=== PATIENT | female | born 1980 | race American Indian/Alaskan Native ===

== ENCOUNTER 2017-06-14 08:26 | Emergency (ER) | payer OTHER ==
[2017-06-14 09:06] LABS: Mean Corpuscular HGB Conc 27 % (30-34); Platelet Count 354 K/mm3 (140-440); White Blood Count 7.1 K/mm3 (4.5-11.0)
[2017-06-14 09:14] LABS: Hematocrit 26.2 % (30.3-42.9); Hemoglobin 7.1 gm/dl (10.1-14.3)
[2017-06-14 09:15] LABS: Mean Corpuscular Hemoglobin 14 pg (28-32); Mean Corpuscular Volume 50 fl (79-97); Red Cell Distribution Width 24.2 % (13.2-15.2)
[2017-06-14 10:34] LABS: Anisocytosis 3+; Basophils % (Manual) 0 % (0.0-1.8); Blastocytes % (Manual) 0 %
[2017-06-14 10:35] LABS: Elliptocytes 1+; Hypochromasia 2+; Poikilocytosis 1+; Polychromasia Few; Target Cells Few
[2017-06-14 10:36] LABS: Diff Status Complete; Microcytosis 3+
[2017-06-14] MEDS ORDERED: NACL 0.9% 1000 ML 1,000 ML IV ONE (11:40)
--- NOTE | 2017-06-14 11:45 | Emergency Department Report ---
ED Female HPI - General Chief complaint: Vaginal Bleeding Stated complaint: VAGINAL BLEED Time Seen by Provider: 06/14/17 11:22 Source: patient Mode of arrival: Ambulatory Limitations: No Limitations - History of Present Illness Initial comments: 36 years old female with no significant past medical history except for asthma, presented Today with heavy vaginal bleeding for the last 2 days with some abdominal cramping patient stated that she has been passing clots. She stated that she is changing her pads every 3 hours. Denied any nausea or vomiting or dizziness. No shortness of breath or lightheadedness. 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 MD Complaint: vaginal bleeding -: Gradual, days(s) Radiation: suprapubic Quality: cramping Are you Now?: No - Related Data Previous Rx's Medication Instructions Recorded Last Taken Type ALBUTEROL Inhaler [ProAir HFA 2 puff IH QID PRN #1 inhalation 06/01/16 Unknown Rx Inhaler] Ferrous Sulfate [Feosol 325 MG tab] 325 mg PO QDAY #30 tablet 06/14/17 Unknown Rx medroxyPROGESTERone ACETATE 10 mg PO QDAY #10 tablet 06/14/17 Unknown Rx [Provera] Allergies Allergy/AdvReac Type Severity Reaction Status Date / Time No Known Allergies Allergy Verified 09/05/14 03:24 ED Review of Systems ROS: Stated complaint: VAGINAL BLEED Other details as noted in HPI Comment: All other systems reviewed and negative Constitutional: denies: chills, fever Respiratory: denies: cough, orthopnea, shortness of breath Cardiovascular: denies: chest pain, palpitations Gastrointestinal: abdominal pain. denies: nausea, vomiting Genitourinary: abnormal menses. denies: urgency, dysuria, frequency, hematuria Neurological: denies: headache ED Past Medical Hx - Past Medical History Hx Asthma: Yes (last inhaler 1 year ago) - Surgical History Hx Cholecystectomy: Yes - Social History Smoking Status: Never Smoker - Medications Home Medications: Home Medications Medication Instructions Recorded Confirmed Last Taken Type ALBUTEROL Inhaler [ProAir HFA 2 puff IH QID PRN #1 inhalation 06/01/16 07/20/16 Unknown Rx Inhaler] Ferrous Sulfate [Feosol 325 MG tab] 325 mg PO QDAY #30 tablet 06/14/17 Unknown Rx medroxyPROGESTERone ACETATE 10 mg PO QDAY #10 tablet 06/14/17 Unknown Rx [Provera] ED Physical Exam - General Limitations: No Limitations General appearance: alert, in no apparent distress - Head Head exam: Present: atraumatic, normocephalic - Eye Eye exam: Present: normal appearance - ENT ENT exam: Present: normal exam - Neck Neck exam: Present: normal inspection - Respiratory Respiratory exam: Present: normal lung sounds bilaterally. Absent: respiratory distress, wheezes, rales, chest wall tenderness - Cardiovascular Cardiovascular Exam: Present: tachycardia. Absent: systolic murmur, diastolic murmur - GI/Abdominal GI/Abdominal exam: Present: soft, tenderness (suprapubic). Absent: guarding, rebound, rigid, normal bowel sounds - Back Exam Back exam: Present: normal inspection. Absent: CVA tenderness (R), CVA tenderness (L) - Neurological Exam Neurological exam: Present: alert, oriented X3 - Skin Skin exam: Present: warm, normal color ED Course Vital Signs 06/14/17 06/14/17 06/14/17 08:36 11:38 11:40 Temperature 98.6 F Pulse Rate 98 H Respiratory 20 Rate Blood Pressure 138/87 127/66 127/66 Blood Pressure 138/87 [Left] O2 Sat by Pulse 100 100 100 Oximetry 06/14/17 06/14/17 06/14/17 11:42 11:43 11:44 Temperature Pulse Rate Respiratory 18 Rate Blood Pressure 127/66 127/66 Blood Pressure [Left] O2 Sat by Pulse 100 100 100 Oximetry 06/14/17 06/14/17 06/14/17 11:46 12:18 12:20 Temperature Pulse Rate Respiratory Rate Blood Pressure 123/65 122/77 122/77 Blood Pressure [Left] O2 Sat by Pulse 100 95 97 Oximetry 06/14/17 06/14/17 06/14/17 12:22 12:24 12:26 Temperature Pulse Rate Respiratory Rate Blood Pressure 122/77 122/77 122/77 Blood Pressure [Left] O2 Sat by Pulse 94 95 83 L Oximetry 06/14/17 06/14/17 06/14/17 12:28 12:30 12:32 Temperature Pulse Rate Respiratory Rate Blood Pressure 122/77 108/63 108/63 Blood Pressure [Left] O2 Sat by Pulse 93 92 92 Oximetry 0906/14/17 06/14/17 12:34 12:36 12:38 Temperature Pulse Rate Respiratory Rate Blood Pressure 108/63 108/63 108/63 Blood Pressure [Left] O2 Sat by Pulse 91 97 97 Oximetry 06/14/17 06/14/17 06/14/17 12:40 12:42 12:44 Temperature Pulse Rate Respiratory Rate Blood Pressure 123/65 123/65 123/65 Blood Pressure [Left] O2 Sat by Pulse 98 97 95 Oximetry 06/14/17 06/14/17 06/14/17 12:46 12:48 12:50 Temperature Pulse Rate Respiratory Rate Blood Pressure 121/71 121/71 121/71 Blood Pressure [Left] O2 Sat by Pulse 97 96 96 Oximetry 06/14/17 06/14/17 06/14/17 12:52 12:54 12:56 Temperature Pulse Rate Respiratory Rate Blood Pressure 121/71 121/71 121/71 Blood Pressure [Left] O2 Sat by Pulse 95 96 93 Oximetry 06/14/17 06/14/17 06/14/17 12:58 13:00 13:02 Temperature Pulse Rate Respiratory Rate Blood Pressure 121/71 112/65 112/65 Blood Pressure [Left] O2 Sat by Pulse 94 96 96 Oximetry 06/14/17 06/14/17 06/14/17 13:04 13:06 13:08 Temperature Pulse Rate Respiratory Rate Blood Pressure 112/65 112/65 112/65 Blood Pressure [Left] O2 Sat by Pulse 96 96 97 Oximetry 06/14/17 06/14/17 06/14/17 13:10 13:12 13:14 Temperature Pulse Rate Respiratory Rate Blood Pressure 112/65 121/71 121/71 Blood Pressure [Left] O2 Sat by Pulse 97 95 100 Oximetry 06/14/17 06/14/17 06/14/17 13:16 13:18 13:20 Temperature Pulse Rate Respiratory Rate Blood Pressure 107/66 107/66 107/66 Blood Pressure [Left] O2 Sat by Pulse 99 100 99 Oximetry 06/14/17 06/14/17 06/14/17 13:22 13:24 13:26 Temperature Pulse Rate Respiratory Rate Blood Pressure 107/66 107/66 107/66 Blood Pressure [Left] O2 Sat by Pulse 100 97 97 Oximetry 06/14/17 06/14/17 06/14/17 13:28 13:30 13:32 Temperature Pulse Rate Respiratory Rate Blood Pressure 107/66 113/67 113/67 Blood Pressure [Left] O2 Sat by Pulse 97 98 100 Oximetry 06/14/17 06/14/17 06/14/17 13:34 13:36 13:40 Temperature Pulse Rate Respiratory Rate Blood Pressure 113/67 113/67 113/67 Blood Pressure [Left] O2 Sat by Pulse 100 99 100 Oximetry 06/14/17 06/14/17 06/14/17 13:42 13:47 13:49 Temperature Pulse Rate Respiratory Rate Blood Pressure 113/67 113/67 113/67 Blood Pressure [Left] O2 Sat by Pulse 69 L 97 Oximetry 06/14/17 13:50 Temperature Pulse Rate Respiratory Rate Blood Pressure 113/67 Blood Pressure [Left] O2 Sat by Pulse 91 Oximetry - Reevaluation(s) Reevaluation #1: 06/14/17 14:26 Patient stated that she is feeling better, informed patient about her lab results which include hemoglobin of 7.1. Pelvic ultrasound showed a 1 cm submucosal fibroid and 1.8 cm right ovarian cyst. Patient received Methergine 0.2 mg IM here in the the ER, Provera prescription for 10 days is written also. 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 06/14/17 19:27 ED Medical Decision Making - Lab Data Result diagrams: 06/14/17 08:54 - Radiology Data Radiology results: report reviewed Critical care attestation.: If time is entered above; I have spent that time in minutes in the direct care of this critically ill patient, excluding procedure time. ED Disposition Clinical Impression: Vaginal bleeding, Anemia due to blood loss, acute Disposition: DC-01 TO HOME OR SELFCARE Is pt being admited?: No Condition: Stable Instructions: Dysfunctional Uterine Bleeding (ED), Uterine Fibroids (ED) Prescriptions: Ferrous Sulfate [Feosol 325 MG tab] 325 mg PO QDAY #30 tablet medroxyPROGESTERone ACETATE [Provera] 10 mg PO QDAY #10 tablet Referrals: PRIMARY CARE, [Primary Care Provider] - 3-5 Days
--- NOTE | 2017-06-14 13:53 | Ultrasound Report ---
ULTRASOUND PELVIC COMPLETE ULTRASOUND TRANSVAGINAL HISTORY: vaginal bleeding. TECHNIQUE: Transabdominal and transvaginal ultrasound with color and spectral doppler interrogation. The uterus measures 11 x 6 x 7 cm. A 1 cm intramural fibroid is noted in the posterior wall to the left of midline. No large submucosal fibroid. The endometrial stripe measures 15 mm. The cervix is unremarkable. The ovaries are normal size, contour and echotexture. A 1.8 cm cyst in the right ovary is noted. No pelvic fluid collection. IMPRESSION: Small uterine fibroid. 1.8 cm right ovarian cyst.
[2017-06-14] MEDS ORDERED: METHERGINE IM ONE (14:11)
[2017-06-14 15:00] VITALS: BP 113/67
== END 2017-06-14 14:59 | disposition home or self-care (01) ==
LOC: ED 08:26
DX: D50.0 Iron deficiency anemia secondary to blood loss (chronic) (principal); N93.8 Other specified abnormal uterine and vaginal bleeding; J45.909 Unspecified asthma, uncomplicated
CPT/HCPCS: 36415; 76830; 76856; 84702; 85007; 85025; 86850; 86900; 86901; 96360; 96372; 99284; J2210; J7030; 90471

== ENCOUNTER 2017-07-12 08:04 | Observation (INO) | payer OTHER ==
[2017-07-10 09:53] LABS: Mean Corpuscular HGB Conc 28 % (30-34); Platelet Count 362 K/mm3 (140-440); Red Blood Count 5.29 M/mm3 (3.65-5.03); White Blood Count 5.5 K/mm3 (4.5-11.0)
[2017-07-10 09:58] LABS: Hematocrit 28.5 % (30.3-42.9); Mean Corpuscular Hemoglobin 15 pg (28-32); Mean Corpuscular Volume 54 fl (79-97); Red Cell Distribution Width 28.9 % (13.2-15.2)
--- NOTE | 2017-07-10 10:04 | Anesthesia Consultation ---
Anesthesia Consult and Med Hx Date of service: 07/12/17 - Airway Anesthetic Teeth Evaluation: Chipped ROM Head & Neck: Adequate Mental/Hyoid Distance: Inadequate Mallampati Class: Class III Intubation Access Assessment: Possibly Difficult - Pulmonary Exam CTA: Yes - Cardiac Exam Cardiac Exam: RRR - Pre-Operative Health Status ASA Pre-Surgery Classification: ASA3 Proposed Anesthetic Plan: General Nerve Block: TAP - Pulmonary Hx Smoking: Yes (marijuana only) Hx Asthma: Yes (not treated in years) Hx Sleep Apnea: No - Cardiovascular System Hx Hypertension: No - Central Nervous System Hx Neuromuscular Disorder: No Hx Psychiatric Problems: No - Gastrointestinal Hx Gastroesophageal Reflux Disease: No - Endocrine Hx Renal Disease: No Hx Insulin Dependent Diabetes: No - Hematic Hx Anemia: Yes - Other Systems Hx Alcohol Use: No Hx Substance Use: Yes (marijuana 2-3 x per week) Hx Cancer: No Hx Obesity: Yes (BMI 46.6)
[2017-07-10 11:00] LABS: Anisocytosis 3+; Blastocytes % (Manual) 0 %; Elliptocytes 1+; Hypochromasia 3+; Microcytosis 3+; Ovalocytes 1+; Polychromasia 1+; Target Cells Rare; Tear Drop Cells 1+
[2017-07-10 11:01] LABS: Diff Status Complete; Helmet Cells Rare
--- NOTE | 2017-07-12 00:54 | History and Physical Report ---
History of Present Illness Date of examination: 07/12/17 Date of admission: 07/12/2017 Chief complaint: dysfunctional uterine bleeding and menorrhagia History of present illness: 36y/o with significant vaginal bleeding causing iron deficiency anemia. She reports heavy bleeding with passage of clots and pain. The patient has elected for definitive surgical management. Past History Past Medical History: asthma, hypertension, other (depression;anemia) Past Surgical History: cholecystectomy Social history: single - Obstetrical History : 6 Para: 4 Hx # Term Pregnancies: 4 Number of Pregnancies: 0 Spontaneous Abortions: 2 Induced : 0 Number of Living Children: 4 Medications and Allergies Allergies Allergy/AdvReac Type Severity Reaction Status Date / Time No Known Allergies Allergy Verified 07/10/17 07:29 Home Medications Medication Instructions Recorded Confirmed Last Taken Type No Known Home Medications [No 07/10/17 07/10/17 Unknown History Reported Home Medications] Active Meds: Active Medications Famotidine (Pepcid) 20 mg PO PREOP NR Stop: 07/12/17 12:00 Lactated Ringer's (Lactated Ringers) 1,000 mls @ 75 mls/hr IV DIRECT ARLENE Midazolam HCl (Versed) 2 mg IV PREOP NR Stop: 07/12/17 23:59 Review of Systems Constitutional: fatigue Genitourinary: vaginal bleeding, pelvic pain - Vital Signs Vital signs: Vital Signs Temp Pulse Resp BP 98.2 F 96 H 14 148/88 07/10/17 09:30 07/10/17 09:30 07/10/17 09:30 07/10/17 09:30 Temp Pulse Resp BP Pulse Ox 98.2 F 96 H 14 148/88 07/10/17 09:30 07/10/17 09:30 07/10/17 09:30 07/10/17 09:30 - Physical Exam Breasts: Positive: deferred Cardiovascular: Regular rate Lungs: Positive: Clear to auscultation Abdomen: Positive: normal appearance, soft Results Result Diagrams: 07/10/17 09:35 All other labs normal. Assessment and Plan - Patient Problems (1) Menorrhagia Status: Acute Qualifiers: Menorrahagia type: M Plan to address problem: scheduled for robotic hysterectomy and bilateral salpingectomy (2) DUB (dysfunctional uterine bleeding) Status: Acute (3) Anemia Status: Acute Qualifiers: Anemia type: A Iron deficiency anemia type: I Vitamin B12 deficiency anemia type: V Folate deficiency anemia type: F Bone marrow failure anemia type: B Hemolytic anemia type: H Other causes of anemia: O Chronic kidney disease stage: C Plan to address problem: patient will receive transfusion pre-op
[~2017-07-12 08:04] MED LIST: ANCEF/STERILE WATER 2 GM/20 ML 2 GM/20 ML SYRINGE IV SCH; LACTATED RINGERS 1,000 ML IV SCH; NACL 0.9% 500 ML 500 ML IV ONE; PEPCID PO NR
[2017-07-12] MEDS: VERSED IV NR ×3 (08:31→09:58)
[2017-07-12] MEDS ORDERED: DECADRON ONE ×2 (09:47→09:56)
[2017-07-12] MEDS ORDERED: MARCAINE-EPI/PF 0.5%-1:200,000 INFILTRATI ONE ×2 (09:47→09:48)
[2017-07-12] MEDS ORDERED: SUBLIMAZE ONE ×2 (09:54→09:59)
[2017-07-12] MEDS ORDERED: ZEMURON IV ONE (09:56)
[2017-07-12] MEDS ORDERED: XYLOCAINE MPF 2% ONE (09:56)
[2017-07-12] MEDS ORDERED: ROBINUL ONE ×2 (09:57→11:37)
[2017-07-12] MEDS ORDERED: NEOSTIGMINE ONE (09:57)
[2017-07-12] MEDS ORDERED: ZOFRAN ONE (09:57)
[2017-07-12] MEDS ORDERED: DIPRIVAN 10 MG/ML IV ONE (09:59)
[2017-07-12] MEDS ORDERED: DILAUDID ONE (09:59)
[2017-07-12] MEDS ORDERED: NEURONTIN PO NR (10:00)
[2017-07-12] MEDS ORDERED: GELFOAM POWDER 1GM MM ONE ×2 (10:13→11:55)
[2017-07-12] MEDS ORDERED: THROMBIN (BOVINE) TP ONE ×2 (10:13→11:55)
[2017-07-12] MEDS ORDERED: NEOSPORIN GU IR ONE ×2 (10:13→11:54)
[2017-07-12] MEDS ORDERED: NACL 0.9% IR ONE ×2 (11:54)
[2017-07-12] MEDS ORDERED: NARCAN 0.4 MG/1 ML IV PRN ×2 (12:14→12:15)
--- NOTE | 2017-07-12 12:14 | Operative Report ---
Operative Report Operative Report: Date of surgery: 07/12/2017 Preoperative diagnoses: Dysfunctional uterine bleeding; menorrhagia; iron deficiency anemia; Postoperative diagnoses: Same as above; pelvic adhesive disease Procedure: Robotic hysterectomy; right salpingectomy; lysis of adhesions Surgeon: Barbara Colon M.D. Ad Compositor: Suleiman Whiting Anesthesia: Gen. endotracheal anesthesia Estimated blood loss: 50 mL Pathology: Uterus, cervix, right tube Indication: 36-year-old with a history of severe menorrhagia causing iron deficiency anemia. Patient also reported having pain with her menses. The patient's vaginal bleeding was significant enough to cause anemia requiring transfusion of 2 units of blood preoperatively. Procedure: The patient was taken to the operating room and given general endotracheal anesthesia without complication. She is prepped and draped in a normal sterile fashion. A bivalve speculum was placed in the patient's vagina and a single- tooth tenaculum placed on the anterior lip of the cervix. The uterus was sounded with the uterine sound. A CodeNgo uterine manipulator was placed in the bivalve speculum was then removed. Attention was then turned to the patient's abdomen where a millimeter supra umbilical skin incision was then made. A Veress needle was placed and peritoneal entry was verified water-filled syringe. Insufflation of the peritoneal cavity was performed with CO2 gas. The 12 mm trocar was then placed under direct visualization. An additional 8 mm trocar was placed on the patient's left and right lateral side just opposite of the supraumbilical trocar. An additional 5 mm right lateral trocar was then placed as the accessory port. General survey of the patient's abdomen and pelvis revealed extensive omental adhesions to the anterior abdominal wall. The patient had a surgically absent left fallopian tube. The ovaries were normal in appearance. Visualization in the pelvis was significantly hindered secondary to the adhesions. Monopolar scissors were used in order to release the adhesions. The patient was then placed in steep Trendelenburg. The da Cem robot was then engaged. A fenestrated forcep was placed in arm 2 and a vessel sealer was placed in arm 1. The surgeon then transferred to the surgical console. The mesosalpinx was then isolated on the right. The vessel sealer was used to coagulate the mesosalpinx which was then transected. The tube was transected from the ovary. The tubo-ovarian ligament was then coagulated and transected. The round ligament was then coagulated and transected also. The vesicouterine peritoneum was then entered from the patient 's right side. The uterine vessels were then coagulated with the vessel sealer. The vessels were then transected . Attention was then turned to the patient's left side where the tubo-ovarian ligament was again isolated coagulated and transected. The vesical peritoneum was then entered from the left and joined in the midline. Peritoneum was reflected off of the lower uterine segment. Uterine vessels were then coagulated and then transected. The blood supply to the uterus was adequately contained, a posterior colpotomy was made. The V care ring was visualized. Posterior colpotomy was created with the monopolar scissors. The incision was continued circumferentially until anterior colpotomy was made. The cervix and uterus were amputated from the vaginal cuff. The uterus was then removed along with the tube through the vagina and a warm laparotomy sponge was placed and maintain the pneumoperitoneum. The vaginal cuff was then closed in a running fashion with V lock suture. Irrigation of the pelvis was performed. Tisseel was applied to the incision. The supraumbilical 12 mm trocar site was closed with the Butch Valverde device. The skin was then reapproximated with 4-0 Monocryl. The tissue was sent to pathology which included the cervix and uterus. The patient was then successfully extubated. She was then taken to the recovery room in stable condition. All sponge laps and needle counts were correct x2.
[2017-07-12] MEDS ORDERED: LACTATED RINGERS 1,000 ML ONE (12:15)
[2017-07-12] MEDS ORDERED: MILK OF MAGNESIA PO PRN (12:16)
[2017-07-12] MEDS ORDERED: MOTRIN PO PRN (12:16)
[2017-07-12] MEDS ORDERED: ZOFRAN IV PRN (12:16)
[2017-07-12] MEDS ORDERED: D5LR 1,000 ML IV SCH (13:00)
[2017-07-12] MEDS ORDERED: MORPHINE PCA 30MG/30ML IV SCH ×2 (13:00)
[2017-07-12] MEDS ORDERED: DILAUDID IV PRN (13:02)
[2017-07-12] MEDS: DILAUDID IV PRN ×3 (13:10→13:36)
--- NOTE | 2017-07-12 13:32 | Post Anesthesia Evaluation ---
- Post Anesthesia Evaluation Patient Participated: Yes Airway Patent: Yes Stable Respiratory Function: Yes Nausea/Vomiting: No Temp > 96.8F: Yes Pain Manageable: Yes Adequeate Hydration: Yes Anesthesia Complications: No Block Receding Appropriately: Not Applicable Patient on Ventilator: No
[2017-07-12] MEDS: PROVENTIL IH SCH (20:15)
[2017-07-13] MEDS: PERCOCET 5/325 PO PRN ×2 (05:29→08:18)
[2017-07-13 07:02] LABS: Hematocrit 31.8 % (30.3-42.9); Hemoglobin 9.2 gm/dl (10.1-14.3)
[2017-07-13] MEDS: PROVENTIL IH SCH ×2 (08:05→14:20)
[2017-07-13] MEDS ORDERED: PERCOCET 5/325 PO PRN (08:30)
--- NOTE | 2017-07-13 08:41 | Progress Note ---
Assessment and Plan - Patient Problems (1) Menorrhagia Current Visit: Yes Status: Acute Qualifiers: Menorrahagia type: M Plan to address problem: patient doing well advance diet discharge home (2) DUB (dysfunctional uterine bleeding) Current Visit: Yes Status: Acute (3) Anemia Current Visit: Yes Status: Acute Qualifiers: Anemia type: A Iron deficiency anemia type: I Vitamin B12 deficiency anemia type: V Folate deficiency anemia type: F Bone marrow failure anemia type: B Hemolytic anemia type: H Other causes of anemia: O Chronic kidney disease stage: C Subjective - Subjective Date of service: 07/13/17 Interval history: 36y/o states her pain is better controlled. Tolerating clears. Patient reports: appetite normal, pain well controlled Objective - Vital Signs Latest vital signs: Vital Signs Temp Pulse Pulse Resp Resp BP BP 07/13/17 08:18 20 07/13/17 08:15 75 18 07/13/17 08:09 07/13/17 08:05 72 18 07/13/17 04:20 16 07/13/17 04:02 98.2 F 78 18 112/60 07/13/17 01:55 18 07/13/17 01:17 98.5 F 83 18 118/57 07/12/17 20:51 98.5 F 101 H 18 138/75 07/12/17 18:08 18 07/12/17 16:47 98.6 F 68 16 106/70 07/12/17 16:00 16 07/12/17 14:45 18 07/12/17 14:25 97.8 F 99 H 18 125/67 07/12/17 14:15 93.3 F L 94 H 20 140/74 07/12/17 14:06 18 07/12/17 14:00 86 22 125/82 07/12/17 13:45 84 22 139/75 07/12/17 13:36 22 07/12/17 13:30 91 H 22 163/97 07/12/17 13:20 22 07/12/17 13:15 101 H 17 168/86 07/12/17 13:10 27 H 07/12/17 13:00 94 H 27 H 163/89 07/12/17 12:50 105 H 12 129/81 07/12/17 12:45 107 H 26 H 146/77 07/12/17 12:40 114 H 26 H 129/76 07/12/17 12:36 98.3 F 104 H 20 145/66 07/12/17 10:20 102 H 20 146/56 07/12/17 10:15 99.1 F 97 H 18 147/64 07/12/17 10:10 102 H 18 147/64 07/12/17 10:05 105 H 18 144/52 07/12/17 10:00 98.6 F 105 H 16 145/56 07/12/17 09:55 88 11 L 148/90 07/12/17 09:50 90 13 139/79 07/12/17 09:48 98.4 F 92 H 18 134/77 07/12/17 09:36 98.7 F 84 18 138/76 07/12/17 09:30 98.7 F 79 18 127/68 07/12/17 09:15 98.3 F 81 18 122/69 07/12/17 09:00 99.2 F 84 18 124/67 Pulse Ox 07/13/17 08:18 07/13/17 08:15 07/13/17 08:09 100 07/13/17 08:05 07/13/17 04:20 07/13/17 04:02 07/13/17 01:55 07/13/17 01:17 07/12/17 20:51 94 07/12/17 18:08 07/12/17 16:47 07/12/17 16:00 07/12/17 14:45 07/12/17 14:25 07/12/17 14:15 96 07/12/17 14:06 07/12/17 14:00 96 07/12/17 13:45 96 07/12/17 13:36 07/12/17 13:30 96 07/12/17 13:20 07/12/17 13:15 97 07/12/17 13:10 07/12/17 13:00 97 07/12/17 12:50 96 07/12/17 12:45 96 07/12/17 12:40 95 07/12/17 12:36 95 07/12/17 10:20 100 07/12/17 10:15 100 07/12/17 10:10 100 07/12/17 10:05 100 07/12/17 10:00 100 07/12/17 09:55 100 07/12/17 09:50 99 07/12/17 09:48 100 07/12/17 09:36 100 07/12/17 09:30 99 07/12/17 09:15 98 07/12/17 09:00 99 Intake and Output 07/12/17 07/13/17 07/13/17 22:59 06:59 14:59 Intake Total 240 480 Output Total 400 500 800 Balance -400 -260 -320 Intake: Intake, Free Water 240 480 Output: Urine 400 500 800 Indwelling Catheter 400 500 800 Other: Total, Output Amount 400 500 800 Voiding Method Toilet - Exam Abdomen: Present: normal appearance, soft Incision: Present: normal - Labs Labs: Abnormal lab results 07/10/17 07/13/17 Range/Units 09:35 06:04 Hgb 9.2 L (10.1-14.3) gm/dl Crossmatch See Detail
--- NOTE | 2017-07-13 08:45 | Discharge Summary ---
Providers - Providers Date of Admission: 07/12/17 12:16 Date of discharge: 07/13/17 Attending physician: JEREMY MALIN Primary care physician: TRAVEL COUNSELOR Hospitalization Reason for admission: other (menorrhagia) Procedure: other (robotic hysterectomy) Incision: normal Discharge diagnosis: other (Menorrhagia; and anemia) Hospital course: Patient admitted the day of surgery. Patient underwent a robotic hysterectomy. Postoperative uneventful Condition at discharge: Good Disposition: DC-01 TO HOME OR SELFCARE - Discharge Diagnoses (1) Menorrhagia Status: Acute Qualifiers: Menorrahagia type: M (2) DUB (dysfunctional uterine bleeding) Status: Acute (3) Anemia Status: Acute Qualifiers: Anemia type: A Iron deficiency anemia type: I Vitamin B12 deficiency anemia type: V Folate deficiency anemia type: F Bone marrow failure anemia type: B Hemolytic anemia type: H Other causes of anemia: O Chronic kidney disease stage: C Plan - Discharge Medications Prescriptions: Docusate Sodium [Colace] 100 mg PO BID PRN #60 capsule PRN Reason: Constipation Ibuprofen [Motrin] 800 mg PO Q8HR PRN #60 tablet PRN Reason: Pain Oxycodone HCl/Acetaminophen [Percocet 7.5/325 mg] 1 each PO Q6HR PRN #45 tablet PRN Reason: Pain - Provider Discharge Summary Activity: no sex for 6 weeks, no heavy lifting 4 weeks, no strenuous exercise Diet: routine Instructions: routine Additional instructions: [] Smoking cessation referral if applicable(refer to patient education folder for contact #) [] Refer to [facility]'s [facility] Booklet Call your doctor immediately for: * Fever > 100.5 * Heavy vaginal bleeding ( >1 pad per hour) * Severe persistent headache * Shortness of breath * Reddened, hot, painful area to leg or breast * Drainage or odor from incision. * Keep incision clean and dry at all times and follow doctor's instructions regarding bathing/showering followup in 4 weeks - Follow up plan
[2017-07-13] MEDS ORDERED: PNEUMOVAX 23 IM ONE (12:00)
[2017-07-13 17:36] VITALS: BP 135/80
== END 2017-07-13 16:15 | disposition home or self-care (01) ==
LOC: OR 08:04 → OB 12:16
PROVIDERS: ADMIT Obstetrics & Gynecology; ATTEND Obstetrics & Gynecology
DX: N92.0 Excessive and frequent menstruation with regular cycle (principal); N93.8 Other specified abnormal uterine and vaginal bleeding; D50.9 Iron deficiency anemia, unspecified; K66.0 Peritoneal adhesions (postprocedural) (postinfection); I10 Essential (primary) hypertension; J45.909 Unspecified asthma, uncomplicated; Z90.49 Acquired absence of other specified parts of digestive tract; F32.9 Major depressive disorder, single episode, unspecified
CPT/HCPCS: 36415; 36430; 58571; 64450; 84703; 85007; 85014; 85018; 85025; 86850; 86900; 86901; 86920; 88307; 90471; 90732; 94640; 96374; 96375; A4217; A4649; G0378; J0690; J1100; J1170; J2250; J2270; J2405; J2704; J2710; J3010; J7120; J7121; P9016; S2900

== ENCOUNTER 2017-07-14 14:17 | Inpatient (IN) | payer OTHER ==
--- NOTE | 2017-07-14 14:25 | Emergency Department Report ---
ED General Adult HPI - General Chief complaint: Dyspnea/Respdistress Stated complaint: DANISH Time Seen by Provider: 07/14/17 14:23 Source: patient, EMS (ems notes not available at time of chart dictation), RN notes reviewed, old records reviewed Limitations: Physical Limitation - History of Present Illness Initial comments: This is a 36-year-old female, patient is previously unknown to this provider, recently admitted to the hospital for robotic hysterectomy, brought to the hospital today by EMS for chest pain and shortness of breath. Patient hypoxic in the field the 70s and 80s, in the ER is 80% on room air. Chest pain is central, does not radiate to the back, arms and neck, there is no vomiting, there is no diaphoresis, there is no leg pain or leg swelling, patient describes new onset orthopnea, there is no hematemesis or bright red blood per rectum. Patient found to have crackles and rales in the emergency room, x-ray of the chest suggest acute congestive heart failure, bedside echocardiogram demonstrated hyperdynamic left ventricle, with what appeared to be a dilated right ventricle. Currently, the CT scanner with angiography capability is not working, and will not be working until at least 10:00 PM this evening. This provider emergently contacted cardiologyMara and request an emergent consultation and bedside echocardiogram to better clarify the patient's ejection fraction. Case discussed with vascular surgery, Dr. Maldonado, who is currently interviewing the patient, and recommends unfractionated heparin drip, without bolus. Given recent surgery, patient has a relative contraindication to thrombolysis, and is therefore not an EKOS candidate at this time. Currently awaiting for critical care physician to call back, will admit to the ICU. We'll also discussed with Hospital physician. -: Gradual Location: chest Quality: aching Consistency: constant Improves with: rest Worsens with: movement Associated Symptoms: chest pain, shortness of breath - Related Data Previous Rx's Medication Instructions Recorded Last Taken Type Docusate Sodium [Colace] 100 mg PO BID PRN #60 capsule 07/13/17 1 Day Ago Rx Ibuprofen [Motrin] 800 mg PO Q8HR PRN #60 tablet 07/13/17 1 Day Ago Rx Oxycodone HCl/Acetaminophen 1 each PO Q6HR PRN #45 tablet 07/13/17 1 Day Ago Rx [Percocet 7.5/325 mg] Allergies Allergy/AdvReac Type Severity Reaction Status Date / Time No Known Allergies Allergy Verified 07/10/17 07:29 ED Review of Systems ROS: Stated complaint: DANISH Other details as noted in HPI Comment: Unobtainable due to pts medical conditions Constitutional: malaise, weakness ENT: denies: congestion Respiratory: shortness of breath Cardiovascular: dyspnea on exertion, orthopnea Gastrointestinal: denies: vomiting Genitourinary: as per HPI Musculoskeletal: as per HPI Skin: as per HPI Neurological: as per HPI Psychiatric: as per HPI ED Past Medical Hx - Past Medical History Hx Hypertension: No Hx Renal Disease: No Hx Asthma: Yes (not treated in years) - Surgical History Hx Cholecystectomy: Yes - Social History Smoking Status: Never Smoker - Medications Home Medications: Home Medications Medication Instructions Recorded Confirmed Last Taken Type Docusate Sodium [Colace] 100 mg PO BID PRN #60 capsule 07/13/17 07/14/17 1 Day Ago Rx Ibuprofen [Motrin] 800 mg PO Q8HR PRN #60 tablet 07/13/17 07/14/17 1 Day Ago Rx Oxycodone HCl/Acetaminophen 1 each PO Q6HR PRN #45 tablet 07/13/17 07/14/17 1 Day Ago Rx [Percocet 7.5/325 mg] ED Physical Exam - General Limitations: Physical Limitation General appearance: alert, in distress, obese - Head Head exam: Present: atraumatic, normocephalic - Eye Eye exam: Present: normal appearance - ENT ENT exam: Present: normal exam, normal orophraynx, mucous membranes moist, normal external ear exam - Neck Neck exam: Present: normal inspection, full ROM. Absent: tenderness, meningismus - Respiratory Respiratory exam: Present: respiratory distress, rales, rhonchi - Cardiovascular Cardiovascular Exam: Present: normal rhythm, tachycardia, normal heart sounds. Absent: systolic murmur, diastolic murmur, rubs, gallop - GI/Abdominal GI/Abdominal exam: Present: soft, normal bowel sounds. Absent: distended, tenderness, guarding, rebound, rigid, pulsatile mass - Extremities Exam Extremities exam: Present: normal inspection, normal capillary refill, calf tenderness - Back Exam Back exam: Present: normal inspection, full ROM. Absent: tenderness, CVA tenderness (R), CVA tenderness (L), muscle spasm, paraspinal tenderness, vertebral tenderness - Neurological Exam Neurological exam: Present: alert, oriented X3, other (Extraocular movements intact. Tongue midline. No facial droop. Facial sensation intact to light touch in the V1, V2, V3 distribution bilaterally. 5 and 5 strength in 4 extremities.. Sensation is intact to light touch in 4 extremities.). Absent: motor sensory deficit - Psychiatric Psychiatric exam: Present: normal affect, normal mood - Skin Skin exam: Present: warm, dry, intact, normal color. Absent: rash ED Course Vital Signs 07/14/17 07/14/17 07/14/17 14:20 14:24 14:30 Temperature 98.6 F Pulse Rate 123 H 109 H 129 H Respiratory 26 H 23 17 Rate Blood Pressure 133/63 O2 Sat by Pulse 95 100 86 Oximetry 07/14/17 07/14/17 07/14/17 14:32 14:46 15:00 Temperature Pulse Rate 111 H 111 H Respiratory 28 H 18 21 Rate Blood Pressure 133/63 133/63 O2 Sat by Pulse 100 100 100 Oximetry 07/14/17 07/14/17 07/14/17 15:05 15:16 15:30 Temperature Pulse Rate 111 H 108 H 106 H Respiratory 31 H 26 H Rate Blood Pressure 133/63 133/63 103/66 O2 Sat by Pulse 99 100 100 Oximetry 07/14/17 07/14/17 07/14/17 16:04 16:16 16:30 Temperature Pulse Rate 116 H 103 H Respiratory 21 28 H 26 H Rate Blood Pressure 127/75 127/75 O2 Sat by Pulse 88 100 Oximetry 07/14/17 07/14/17 07/14/17 16:46 17:00 17:16 Temperature Pulse Rate 96 H 96 H 90 Respiratory 26 H 29 H 17 Rate Blood Pressure 120/67 126/77 126/77 O2 Sat by Pulse 100 100 100 Oximetry 07/14/17 07/14/17 07/14/17 17:30 17:46 18:00 Temperature Pulse Rate 93 H 94 H 94 H Respiratory 23 22 17 Rate Blood Pressure 119/71 126/77 131/80 O2 Sat by Pulse 100 100 100 Oximetry 07/14/17 07/14/17 07/14/17 18:16 18:30 18:46 Temperature Pulse Rate 98 H 100 H 105 H Respiratory 19 21 27 H Rate Blood Pressure 131/80 126/81 126/81 O2 Sat by Pulse 100 100 92 Oximetry 07/14/17 07/14/17 07/14/17 19:00 19:16 19:31 Temperature Pulse Rate 99 H 102 H Respiratory 24 18 25 H Rate Blood Pressure 122/69 122/69 122/69 O2 Sat by Pulse 100 100 Oximetry 07/14/17 07/14/17 19:35 19:45 Temperature Pulse Rate Respiratory 20 22 Rate Blood Pressure 122/69 O2 Sat by Pulse 100 Oximetry - Reevaluation(s) Reevaluation #1: 07/14/17 15:25 Patient is seen and examined by cardiology. Their formal echocardiogram does not demonstrate RV dysfunction, and demonstrates appropriate ejection fraction. They recommended Lasix. They will follow. Vascular surgery has evaluated the patient. Case discussed with pulmonology, Dr. Harp, who does not recommend TPA at this time, given hemodynamic stability. Patient feels much improved on BiPAP therapy. I asked the surgery has ordered a CT scan on the [address] scanner. Currently waiting callback from Hospital physician to arrange admission. Reevaluation #2: 07/14/17 16:02 Patient had a [address] scan obtained, CT scan reviewed by vascular surgery, Dr. Landon, Who indicates patient has probable aspiration pneumonia/pneumonitis. Patient offered additional history to vascular surgery team, patient indicates that she threw up last night, and she may have swallowed her vomitus. 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 Reevaluation #3: 07/14/17 16:26 Dr Ricketts accepts patient to his service Reevaluation #4: 07/14/17 20:04 Patient reevaluated multiple times, looks much more comfortable ED Medical Decision Making - Lab Data Result diagrams: 07/14/17 14:30 07/14/17 14:30 - EKG Data -: EKG Interpreted by Me EKG shows normal: sinus rhythm Rate: tachycardia - Radiology Data Radiology results: image reviewed interpreted by me: X-ray the chest demonstrates congestive heart failure Critical Care Time: Yes Critical care time in (mins) excluding proc time.: 35 Critical care attestation.: If time is entered above; I have spent that time in minutes in the direct care of this critically ill patient, excluding procedure time. ED Disposition Clinical Impression: Respiratory failure Qualifiers: Chronicity: acute Respiratory failure complication: hypoxia Qualified Code(s): J96.01 - Acute respiratory failure with hypoxia Disposition: DC-09 OP ADMIT IP TO THIS HOSP Is pt being admited?: Yes Condition: Critical
--- NOTE | 2017-07-14 14:44 | Consultation ---
History of Present Illness Consult date: 07/14/17 Requesting physician: DAVIDSON FUNES History of present illness: Pt is a 36 YO female with a past medical history significant for severe menorrhagia causing iron deficiency anemia, s/p recent robotic hysterectomy with right salpingectomy and lysis of adhesions on 07/12/2017 at [facility]. Pt was discharged from [facility] on 07/13/2017. Pt is previously unknown to our practice. She presented with c/o SOB and chest pain since this AM. She reports that she went to bed last night in her normal state of health and awoke this AM with sudden onset SOB and chest pain. She describes her chest pain as a nonexertional , nonradiating, midsternal pressure which is only present on inspiration. She denies any n/v, palpitations, diaphoresis, dizziness or syncope. She denies any prior cardiac issues or h/o DVT or PE. CXR following admission concerning for pulmonary venous congestion, early pulm edema and bilateral pulmonary infiltrates; lactic acid currently 2.20; DDimer elevated. Past History Past Medical History: anemia Past Surgical History: hysterectomy Social history: lives with family. denies: smoking, alcohol abuse, prescription drug abuse Medications and Allergies Allergies Allergy/AdvReac Type Severity Reaction Status Date / Time No Known Allergies Allergy Verified 07/10/17 07:29 Home Medications Medication Instructions Recorded Confirmed Last Taken Type Docusate Sodium [Colace] 100 mg PO BID PRN #60 capsule 07/13/17 07/14/17 1 Day Ago Rx Ibuprofen [Motrin] 800 mg PO Q8HR PRN #60 tablet 07/13/17 07/14/17 1 Day Ago Rx Oxycodone HCl/Acetaminophen 1 each PO Q6HR PRN #45 tablet 07/13/17 07/14/17 1 Day Ago Rx [Percocet 7.5/325 mg] Review of Systems Constitutional: no weight loss, no weight gain, no fever, no chills, no sweats Ears, nose, mouth and throat: no ear pain, no nose pain, no sinus pressure, no sinus pain Cardiovascular: chest pain, shortness of breath, dyspnea on exertion, no orthopnea, no palpitations, no rapid/irregular heart beat, no edema, no syncope , no lightheadedness, no paroxysmal nocturnal dyspnea, no high blood pressure, no leg edema Respiratory: pain on inspiration, no cough, no congestion, no wheezing Gastrointestinal: no abdominal pain, no nausea, no vomiting, no diarrhea, no constipation, no change in bowel habits Genitourinary Female: no pelvic pain, no flank pain, no dysuria, no urinary frequency, no urgency Musculoskeletal: no neck stiffness, no neck pain, no shooting arm pain, no arm numbness/tingling, no low back pain, no shooting leg pain, no leg numbness/ tingling, no redness of joints Integumentary: no rash, no pruritis, no redness, no sores, no wounds Neurological: no head injury, no paralysis, no weakness, no parathesias, no numbness, no tingling, no seizures, no syncope Psychiatric: no anxiety Endocrine: no cold intolerance, no heat intolerance Hematologic/Lymphatic: no easy bruising, no easy bleeding, no lymphadenopathy Allergic/Immunologic: no urticaria, no wheezing, no persistent infections Physical Examination Vital Signs Temp Pulse Resp BP Pulse Ox 98.6 F 123 H 26 H 133/63 95 07/14/17 14:20 07/14/17 14:20 07/14/17 14:20 07/14/17 14:20 07/14/17 14:20 General appearance: mild distress HEENT: Positive: PERRL, Normocephaly, Mucus Membranes Moist Neck: Positive: neck supple, trachea midline Cardiac: Positive: Regular Rhythm, S1/S2, Tachycardia Lungs: Positive: Decreased Breath Sounds, Rales (anterior) Neuro: Positive: Grossly Intact, Cranial Nerve 2-12 Intact Abdomen: Positive: Unremarkable, Soft, Active Bowel Sounds. Negative: Tender Skin: Positive: Clear. Negative: Rash, Wound Musculoskeletal: No Fluid Collection, No Pain, Normal Range of Motion Extremities: Absent: edema Results 07/14/17 14:30 07/14/17 14:30 - Imaging and Cardiology Echo: pending EKG: image reviewed EKG interpretations - Telemetry EKG Rhythm: Sinus Tachycardia - EKG Sinus rhythms and dysrhythmias: sinus tachycardia Assessment and Plan Assessment: Acute respiratory failure - on BiPAP Chest pain - pleuritic in nature; ECG with no acute ischemic findings Elevated DDimer - R/O PE Lactic acidosis / ? PNA / ? sepsis Sinus tachycardia H/o severe menorrhagia causing iron deficiency anemia, s/p recent robotic hysterectomy with right salpingectomy and lysis of adhesions on 07/12/2017 at [facility] Plan: Chest CT pending. Preliminary STAT bedside echo reveals no RV strain. Await final echo read. Heparin gtt initiated per ED MD. STAT bilateral lower ext dopplers pending. Pt undergoing vascular and critical care team consultations. Initiate diuresis with IV lasix, 40mg BID. Repeat BMP in AM. Recommend blood cultures per primary. BPs WNL. Will hold on initiation of BB and/or ACEI/ARB at this time as pt may currently be at risk for development of hemodynamic instability. Assessment and plan reviewed with pt and pt's at bedside. The patient has been seen in conjunction with Dr. Ding who agrees with the assessment and plan of care.
[2017-07-14] MEDS ORDERED: HEPARIN 10,000 UNITS/10 ML IV ONE (14:56)
[2017-07-14] MEDS ORDERED: HEPARIN 10,000 UNITS/10 ML ONE (15:02)
[2017-07-14 15:04] LABS: Mean Corpuscular HGB Conc 28 % (30-34); Platelet Count 253 K/mm3 (140-440); Red Blood Count 5.38 M/mm3 (3.65-5.03); White Blood Count 11.7 K/mm3 (4.5-11.0)
[2017-07-14 15:06] LABS: INR 1.11 (0.87-1.13)
[2017-07-14 15:07] LABS: Partial Thromboplastin Time 35.4 Sec. (24.2-36.6)
[2017-07-14 15:09] LABS: Hematocrit 31.5 % (30.3-42.9); Hemoglobin 8.9 gm/dl (10.1-14.3); Mean Corpuscular Hemoglobin 17 pg (28-32); Mean Corpuscular Volume 59 fl (79-97); Red Cell Distribution Width 32.6 % (13.2-15.2)
[2017-07-14] MEDS ORDERED: HEPARIN/ 0.45% NACL-25,000 UNIT/500 ML 25,000 UNIT/500 ML BAG IV SCH (15:15)
--- NOTE | 2017-07-14 15:16 | Consultation ---
History of Present Illness Consult date: 07/14/17 Requesting physician: DAVIDSON FUNES Reason for consult: other (Acute Hypoxemic Respiratory Failure) History of present illness: PULMONARY/CC< CONSULT NOTE (Full dictation # [id number]) Please see dictated notes for full details Medications and Allergies Allergies Allergy/AdvReac Type Severity Reaction Status Date / Time No Known Allergies Allergy Verified 07/10/17 07:29 Home Medications Medication Instructions Recorded Confirmed Last Taken Type Docusate Sodium [Colace] 100 mg PO BID PRN #60 capsule 07/13/17 07/14/17 1 Day Ago Rx Ibuprofen [Motrin] 800 mg PO Q8HR PRN #60 tablet 07/13/17 07/14/17 1 Day Ago Rx Oxycodone HCl/Acetaminophen 1 each PO Q6HR PRN #45 tablet 07/13/17 07/14/17 1 Day Ago Rx [Percocet 7.5/325 mg] Active Meds: Active Medications Heparin Sodium/Sodium Chloride (Heparin/ 0.45% Nacl-25,000 Unit/500 Ml) 25,000 unit in 500 mls @ 30 mls/hr IV TITR ARLENE; 1,500 UNITS/HR PRN Reason: Protocol Physical Examination Vital signs: Vital Signs Temp Pulse Resp BP Pulse Ox 98.6 F 123 H 26 H 133/63 95 07/14/17 14:20 07/14/17 14:20 07/14/17 14:20 07/14/17 14:20 07/14/17 14:20 Results - Laboratory Findings CBC and BMP: 07/14/17 14:30 07/15/17 05:34 PT/INR, D-dimer PT 14.9 Sec. (12.2-14.9) 07/14/17 14:30 INR 1.11 (0.87-1.13) 07/14/17 14:30 D-Dimer 1127.68 ng/mlDDU (0-234) H 07/14/17 14:30 Abnormal lab findings: Abnormal Labs 07/14/17 07/14/17 14:30 14:30 WBC 11.7 H RBC 5.38 H Hgb 8.9 L MCV 59 L MCH 17 L MCHC 28 L RDW 32.6 H D-Dimer 1127.68 H
--- NOTE | 2017-07-14 15:21 | Event Note ---
Date: 07/14/17 Discussed with ER physician Concern is for acute P.E. and utility of thrombolytic therapy in setting of recent hysterectomy (2 DAYS AGO) for now CXR suggests early pulmonary edema vs bilateral pneumonia (e.g aspiration) in the right setting A&P: - Recent hysterectomy is a relative contraindication - if severe hemodynamic compromise viz-a-viz hypotension not responsive to vasopressor and volume resuscitation develops then benefits will outweigh risk in my opinion - need to establish diagnosis first and will follow post angiography - get BNP, BMP, 2D ECHO, CRP, Lactate, ABG - empiric AB's coverage is ok - supplemental oxygen - NIV with BIPAP if no intractable emesis and able to control airway (will adjust settings per ABG result) - aspiration precautions - bilateral lower ext dopplers stat - IV heparin if VGE confirmed and follow H&H - anxiolytics and analgesia prn .....will see in order for full consultation
[2017-07-14 15:33] LABS: Alanine Aminotransferase 59 units/L (7-56); Albumin 3.2 g/dL (3.9-5); Albumin/Globulin Ratio 0.9 %; Alkaline Phosphatase 122 units/L (35-129); Anion Gap 16 mmol/L; BUN/Creatinine Ratio 14; Blood Urea Nitrogen 11 mg/dL (7-17); Calcium 8.2 mg/dL (8.4-10.2); Carbon Dioxide 26 mmol/L (22-30); Chloride 103.3 mmol/L (98-107); Glucose 129 mg/dL (65-100); Potassium 3.5 mmol/L (3.6-5.0); Sodium 142 mmol/L (137-145); Total Protein 6.9 g/dL (6.3-8.2)
--- NOTE | 2017-07-14 15:48 | XRay Report ---
PORTABLE CHEST INDICATION: Dyspnea. History of hysterectomy. COMPARISON: None similar. FINDINGS: Portable, frontal chest radiograph demonstrates mild exaggerated cardiomediastinal silhouette and increased hazy markings/opacities centrally, extending into the upper lobes, possibly congestive versus bronchitis/pneumonitis with mild peribronchial thickening. No large pleural effusions. EKG leads. Intact bones. CONCLUSION: Bilateral perihilar and upper lobe pneumonias, as described. Thank you for the opportunity to participate in this patient's care.
[2017-07-14 15:56] LABS: Basophils % (Manual) 0 % (0.0-1.8); Blastocytes % (Manual) 0 %; Eosinophils % (Manual) 0 % (0.0-4.3)
[2017-07-14 15:58] LABS: Anisocytosis 3+; Hypochromasia 3+; Microcytosis 2+; Platelet Estimate Consistent w Auto
[2017-07-14 16:00] LABS: Elliptocytes 1+; Ovalocytes 1+; Tear Drop Cells Few
[2017-07-14 16:01] LABS: Target Cells Rare
[2017-07-14 16:02] LABS: Diff Status Complete
[2017-07-14] MEDS ORDERED: LEVAQUIN 750MG/150ML 750 MG/150 ML BAG IV ONE (16:02)
--- NOTE | 2017-07-14 16:12 | Event Note ---
Date: 07/14/17 36-year-old female status post recent hysterectomy with morbid obesity with high concern for pulmonary embolism with impending hemodynamic decompensation given her severe tachycardia, and escalating respiratory requirements with nonrebreather and subsequent BiPAP. ER physician at bedside noted right heart strain on echo. Troponin was negative. CT scan performed demonstrating no main, lobar, or segmental pulmonary embolism. There are multifocal airspace disease, all of which were posterior, which are suspicious for aspiration pneumonia. The patient reported that she had emesis yesterday and choked on some of her vomit, compatible with aspiration pneumonia. No evidence of acute pulmonary embolism. This was discussed with Dr. Garcia and the family at bedside.
[2017-07-14 16:25] LABS: ISTAT Base Excess 1; ISTAT DEVICE 0; ISTAT HCO3 25.7; ISTAT PCO2 40.1 (35-45); ISTAT PH 7.415 (7.35-7.45); ISTAT PO2 46 (80-105); ISTAT SO2 82; ISTAT TCO2 27
[2017-07-14] MEDS: LASIX IV SCH ×2 (16:42→23:25)
[2017-07-14] MEDS: NACL 0.9% 500 ML 500 ML IV ONE (16:45)
[2017-07-14] MEDS ORDERED: ZOFRAN ONE (17:55)
[2017-07-14] MEDS ORDERED: MORPHINE ONE (17:55)
[2017-07-14] MEDS ORDERED: ZOFRAN IV PRN ×2 (18:02→21:05)
[2017-07-14] MEDS: MORPHINE IV PRN ×2 (18:11→23:13)
--- NOTE | 2017-07-14 19:55 | Cat Scan Report ---
FINAL REPORT EXAM: CT ANGIO CHEST HISTORY: PE TECHNIQUE: CT chest CT angiogram with reconstructions PRIORS: None. FINDINGS: There is no evidence of filling defect within the central pulmonary vasculature to suggest the presence of acute pulmonary embolus. No evidence of mediastinal pathologic lymph node enlargement Heart and great vessels are unremarkable. The aorta is normal in caliber. Multiple areas of consolidating infiltrate are present throughout both lungs including both upper and lower lobes primarily in a posterior distribution. Visualized portion of the upper abdomen demonstrates no acute change. IMPRESSION: Bilateral pulmonary infiltrates most consistent with multifocal pneumonia No CT evidence of acute pulmonary embolus
[2017-07-14] MEDS ORDERED: NORCO 5/325 ONE (20:18)
[2017-07-14] MEDS: NORCO 5/325 PO PRN (20:20)
[2017-07-14] MEDS ORDERED: MILK OF MAGNESIA PO PRN (21:05)
[2017-07-14] MEDS ORDERED: TYLENOL PO PRN (21:05)
[2017-07-14] MEDS ORDERED: PERCOCET 5/325 PO PRN (21:05)
[2017-07-14] MEDS ORDERED: DULCOLAX PR PRN (21:05)
--- NOTE | 2017-07-14 21:05 | History and Physical Report ---
History of Present Illness Date of examination: 07/14/17 Date of admission: 07/14/17 18:01 Chief complaint: Chief complaint: Shortness of breath since a.m. History of present illness: History of present illness: 36-year-old -[place] Islander female with past medical history of asthma comes in for increasing shortness of breath and wheezing since a.m. Patient was found to be very hypoxic by the EMS. Patient was in the 70s and 80s of oxygen saturation. Patient recently had a robotic hysterectomy. No postop complications. Patient apparently had emesis yesterday and choked on some of her vomitus. Patient had an uneventful night but in the morning was very short of breath and wheezing. Also fever present. Patient has a history of asthma which is in remission. Past medical history asthma. Past surgical history: cholecystectomy and a robotic hysterectomy. Family history: Hypertension. Social history: does not smoke. Review of System: Constitutional: no fever, no chills, no weight loss Ears, eyes, nose, mouth and throat: no nasal congestion, no nasal discharge, no sinus pressure, no vision change, no red eye. Neck: No neck pain or rigidity. Cardiovascular: No chest pain, no orthopnea, no palpitations, no leg swelling Respiratory: Very shortness of breath, severe congestion, and wheezing Gastrointestinal: no abdominal pain, no nausea, no vomiting Genitourinary : no dysuria, no hematuria Musculoskeletal: no joint swelling or muscle ache Integumentary: no rash, no pruritis Neurological: no parathesias, no numbness, no tingling Endocrine: no cold or heat intolerance, no polyuria or polydipsia Hematologic/Lymphatic: no easy bruising, no easy bleeding, no gland swelling Allergic/Immunologic: no urticaria, no angioedema. Past History Past Medical History: anemia Past Surgical History: hysterectomy Social history: lives with family. denies: smoking, alcohol abuse, prescription drug abuse Medications and Allergies Allergies Allergy/AdvReac Type Severity Reaction Status Date / Time No Known Allergies Allergy Verified 07/10/17 07:29 Home Medications Medication Instructions Recorded Confirmed Last Taken Type Docusate Sodium [Colace] 100 mg PO BID PRN #60 capsule 07/13/17 07/14/17 1 Day Ago Rx Ibuprofen [Motrin] 800 mg PO Q8HR PRN #60 tablet 07/13/17 07/14/17 1 Day Ago Rx Oxycodone HCl/Acetaminophen 1 each PO Q6HR PRN #45 tablet 07/13/17 07/14/17 1 Day Ago Rx [Percocet 7.5/325 mg] Active Meds: Active Medications Acetaminophen/Hydrocodone Bitart ([place] 5/325) 1 each PO Q6H PRN PRN Reason: Pain, Moderate (4-6) Last Admin: 07/14/17 20:20 Dose: 1 each Furosemide (Lasix) 40 mg IV BID ARLENE Last Admin: 07/14/17 16:42 Dose: Not Given Morphine Sulfate (Morphine) 4 mg IV Q4H PRN PRN Reason: Pain, Moderate (4-6) Last Admin: 07/14/17 18:11 Dose: 4 mg Ondansetron HCl (Zofran) 4 mg IV Q4H PRN PRN Reason: Nausea And Vomiting Last Admin: 07/14/17 18:11 Dose: 4 mg Exam - Physical Exam Narrative exam: Patient in severe respiratory distress - Constitutional Vitals: Temp Pulse Resp BP Pulse Ox 98.6 F 100 H 24 124/75 99 07/14/17 20:01 07/14/17 20:01 07/14/17 20:20 07/14/17 20:01 07/14/17 20:01 General appearance: Present: severe distress - EENT Eyes: Present: PERRL, EOM intact ENT: hearing intact - Neck Neck: Present: supple, normal ROM - Respiratory Respiratory effort: labored, accessory muscle use - Cardiovascular Heart rate: 100 Rhythm: regular - Extremities Extremities: no ischemia, pulses intact Peripheral Pulses: within normal limits - Abdominal General gastrointestinal: Present: soft, non-tender, normal bowel sounds - Rectal Rectal Exam: deferred - Integumentary Integumentary: Present: clear, warm, dry - Musculoskeletal Musculoskeletal: strength equal bilaterally - Psychiatric Psychiatric: appropriate mood/affect, intact judgment & insight, memory intact, cooperative - Neurologic Neurologic: CNII-XII intact, moves all extremities, gait normal - Allied Health Allied health notes reviewed: nursing, case management Results - Labs CBC & Chem 7: 07/14/17 14:30 07/14/17 14:30 Labs: Laboratory Last Values WBC 11.7 K/mm3 (4.5-11.0) H 07/14/17 14:30 RBC 5.38 M/mm3 (3.65-5.03) H 07/14/17 14:30 Hgb 8.9 gm/dl (10.1-14.3) L 07/14/17 14:30 Hct 31.5 % (30.3-42.9) 07/14/17 14:30 MCV 59 fl (79-97) L 07/14/17 14:30 MCH 17 pg (28-32) L 07/14/17 14:30 MCHC 28 % (30-34) L 07/14/17 14:30 RDW 32.6 % (13.2-15.2) H 07/14/17 14:30 Plt Count 253 K/mm3 (140-440) 07/14/17 14:30 Add Manual Diff Complete 07/14/17 14:30 Total Counted 100 07/14/17 14:30 Seg Neuts % (Manual) 86.0 % (40.0-70.0) H 07/14/17 14:30 Band Neutrophils % 0 % 07/14/17 14:30 Lymphocytes % (Manual) 11.0 % (13.4-35.0) L 07/14/17 14:30 Reactive Lymphs % (Man) 0 % 07/14/17 14:30 Monocytes % (Manual) 3.0 % (0.0-7.3) 07/14/17 14:30 Eosinophils % (Manual) 0 % (0.0-4.3) 07/14/17 14:30 Basophils % (Manual) 0 % (0.0-1.8) 07/14/17 14:30 Metamyelocytes % 0 % 07/14/17 14:30 Myelocytes % 0 % 07/14/17 14:30 Promyelocytes % 0 % 07/14/17 14:30 Blast Cells % 0 % 07/14/17 14:30 Nucleated RBC % Not Reportable 07/14/17 14:30 Seg Neutrophils # Man 10.1 K/mm3 (1.8-7.7) H 07/14/17 14:30 Band Neutrophils # 0.0 K/mm3 07/14/17 14:30 Lymphocytes # (Manual) 1.3 K/mm3 (1.2-5.4) 07/14/17 14:30 Abs React Lymphs (Man) 0.0 K/mm3 10/20/17 14:30 Monocytes # (Manual) 0.4 K/mm3 (0.0-0.8) 07/14/17 14:30 Eosinophils # (Manual) 0.0 K/mm3 (0.0-0.4) 07/14/17 14:30 Basophils # (Manual) 0.0 K/mm3 (0.0-0.1) 07/14/17 14:30 Metamyelocytes # 0.0 K/mm3 07/14/17 14:30 Myelocytes # 0.0 K/mm3 07/14/17 14:30 Promyelocytes # 0.0 K/mm3 07/14/17 14:30 Blast Cells # 0.0 K/mm3 07/14/17 14:30 WBC Morphology Not Reportable 07/14/17 14:30 Hypersegmented Neuts Not Reportable 07/14/17 14:30 Hyposegmented Neuts Not Reportable 07/14/17 14:30 Hypogranular Neuts Not Reportable 07/14/17 14:30 Smudge Cells Not Reportable 07/14/17 14:30 Toxic Granulation Not Reportable 07/14/17 14:30 Toxic Vacuolation Not Reportable 07/14/17 14:30 Dohle Bodies Not Reportable 07/14/17 14:30 Pelger-Huet Anomaly Not Reportable 07/14/17 14:30 Pamela Rods Not Reportable 07/14/17 14:30 Platelet Estimate Consistent w auto 07/14/17 14:30 Clumped Platelets Not Reportable 07/14/17 14:30 Plt Clumps, EDTA Not Reportable 07/14/17 14:30 Large Platelets Not Reportable 07/14/17 14:30 Giant Platelets Not Reportable 07/14/17 14:30 Platelet Satelliting Not Reportable 07/14/17 14:30 Plt Morphology Comment Not Reportable 07/14/17 14:30 RBC Morphology Not Reportable 07/14/17 14:30 Dimorphic RBCs Not Reportable 07/14/17 14:30 Polychromasia Not Reportable 07/14/17 14:30 Hypochromasia 3+ 07/14/17 14:30 Poikilocytosis Not Reportable 07/14/17 14:30 Anisocytosis 3+ 07/14/17 14:30 Microcytosis 2+ 07/14/17 14:30 Macrocytosis Not Reportable 07/14/17 14:30 Spherocytes Not Reportable 07/14/17 14:30 Pappenheimer Bodies Not Reportable 07/14/17 14:30 Sickle Cells Not Reportable 07/14/17 14:30 Target Cells Rare 07/14/17 14:30 Tear Drop Cells Few 07/14/17 14:30 Ovalocytes 1+ 07/14/17 14:30 Helmet Cells Not Reportable 07/14/17 14:30 [place] Bodies Not Reportable 07/14/17 14:30 [place] Rings Not Reportable 07/14/17 14:30 Rashmi Cells Not Reportable 07/14/17 14:30 Bite Cells Not Reportable 07/14/17 14:30 Crenated Cell Not Reportable 07/14/17 14:30 Elliptocytes 1+ 07/14/17 14:30 Acanthocytes (Spur) Not Reportable 07/14/17 14:30 Rouleaux Not Reportable 07/14/17 14:30 Hemoglobin C Crystals Not Reportable 07/14/17 14:30 Schistocytes Not Reportable 07/14/17 14:30 Malaria parasites Not Reportable 07/14/17 14:30 Freddy Bodies Not Reportable 07/14/17 14:30 Hem Pathologist Commnt No 07/14/17 14:30 PT 14.9 Sec. (12.2-14.9) 07/14/17 14:30 INR 1.11 (0.87-1.13) 07/14/17 14:30 APTT 35.4 Sec. (24.2-36.6) 07/14/17 14:30 D-Dimer 1127.68 ng/mlDDU (0-234) H 07/14/17 14:30 POC ABG pH 7.415 (7.35-7.45) 07/14/17 14:55 POC ABG pCO2 40.1 (35-45) 07/14/17 14:55 POC ABG pO2 46 (80-105) L 07/14/17 14:55 POC ABG HCO3 25.7 07/14/17 14:55 POC ABG Total CO2 27 07/14/17 14:55 POC ABG O2 Sat 82 07/14/17 14:55 POC ABG Base Excess 1 07/14/17 14:55 FiO2 21 % 07/14/17 14:55 Sodium 142 mmol/L (137-145) 07/14/17 14:30 Potassium 3.5 mmol/L (3.6-5.0) L 07/14/17 14:30 Chloride 103.3 mmol/L (98-107) 07/14/17 14:30 Carbon Dioxide 26 mmol/L (22-30) 07/14/17 14:30 Anion Gap 16 mmol/L 07/14/17 14:30 BUN 11 mg/dL (7-17) 07/14/17 14:30 Creatinine 0.8 mg/dL (0.7-1.2) 07/14/17 14:30 Estimated GFR > 60 ml/min 07/14/17 14:30 BUN/Creatinine Ratio 14 % 07/14/17 14:30 Glucose 129 mg/dL (65-100) H 07/14/17 14:30 Lactic Acid 1.40 mmol/L (0.7-2.0) 07/14/17 16:29 Calcium 8.2 mg/dL (8.4-10.2) L 07/14/17 14:30 Total Bilirubin 0.50 mg/dL (0.1-1.2) 07/14/17 14:30 AST 74 units/L (5-40) H 07/14/17 14:30 ALT 59 units/L (7-56) H 07/14/17 14:30 Alkaline Phosphatase 122 units/L (35-129) 07/14/17 14:30 Troponin T < 0.010 ng/mL (0.00-0.029) 07/14/17 14:30 NT-Pro-B Natriuret Pep 707.2 pg/mL (0-450) H 07/14/17 14:37 Total Protein 6.9 g/dL (6.3-8.2) 07/14/17 14:30 Albumin 3.2 g/dL (3.9-5) L 07/14/17 14:30 Albumin/Globulin Ratio 0.9 % 07/14/17 14:30 Blood Type O POSITIVE 07/14/17 14:37 Antibody Screen Negative 07/14/17 14:37 Crossmatch See Detail 07/14/17 14:37 Short CBC 07/14/17 Range/Units 14:30 WBC 11.7 H (4.5-11.0) K/mm3 Hgb 8.9 L (10.1-14.3) gm/dl Hct 31.5 (30.3-42.9) % Plt Count 253 (140-440) K/mm3 BMP 07/14/17 14:30 Sodium 142 Potassium 3.5 L Chloride 103.3 Carbon Dioxide 26 BUN 11 Creatinine 0.8 Glucose 129 H Calcium 8.2 L Cardiac Enzymes 07/14/17 Range/Units 14:30 Troponin T < 0.010 (0.00-0.029) ng/mL Liver Function 07/14/17 Range/Units 14:30 Total Bilirubin 0.50 (0.1-1.2) mg/dL AST 74 H (5-40) units/L ALT 59 H (7-56) units/L Alkaline Phosphatase 122 (35-129) units/L Albumin 3.2 L (3.9-5) g/dL - Imaging and Cardiology EKG: report reviewed (sinus tachycardia) Chest x-ray: report reviewed (bilateral infiltrates) CT scan - chest: report reviewed (bilateral infiltrates most consistent with multifocal pneumonia) Assessment and Plan Advance Directives: Yes (full code) VTE prophylaxis?: Chemical Plan of care discussed with patient/family: Yes - Patient Problems (1) Acute respiratory failure with hypoxia Current Visit: Yes Status: Acute Plan to address problem: Secondary to aspiration pneumonia. Patient on BiPAP. DuoNeb and broad- spectrum antibiotics initiated. Intubation if necessary. (2) Aspiration pneumonia Current Visit: Yes Status: Acute Qualifiers: Aspiration pneumonia type: due to vomit Laterality: bilateral Lung location: L Plan to address problem: Patient aspirated on vomitus yesterday. Broad spectrum antibiotic coverage with IV Zosyn and vancomycin. Infectious disease consult requested regarding antibiotic coverage. Blood cultures and sputum cultures ordered (3) Asthma Current Visit: Yes Status: Chronic Qualifiers: Asthma severity: A Asthma persistence: intermittent Asthma complication type: A Plan to address problem: Has wheezing now which is secondary to her aspiration pneumonia and reactive airway disease. Symptomatic treatment. (4) DVT prophylaxis Current Visit: Yes Status: Acute Plan to address problem: Lovenox 40 mg subcutaneous daily
[2017-07-14] MEDS ORDERED: DUONEB *Not for PRN Use IH (21:24)
[2017-07-14] MEDS: DUONEB *Not for PRN Use IH SCH (21:48)
[2017-07-14] MEDS ORDERED: VANCOMYCIN 2,000 MG in NACL 0.9% 500 ML 500 ML IV ONE (22:00)
[2017-07-14] MEDS ORDERED: VANCOMYCIN PHARMACY TO DOSE IV SCH (22:00)
[2017-07-14] MEDS ORDERED: NACL 0.9% 1000 ML 1,000 ML IV SCH (22:00)
[2017-07-14] MEDS: PEPCID IV SCH (23:24)
[2017-07-15] MEDS: ZOSYN/NS 4.5GM/100ML 4.5 GM/100 ML VIAL IV SCH ×4 (00:10→21:47)
[2017-07-15] MEDS: DUONEB *Not for PRN Use IH SCH ×4 (01:49→21:21)
[2017-07-15] MEDS: MORPHINE IV PRN ×3 (04:02→21:57)
[2017-07-15 06:45] LABS: Anion Gap 18 mmol/L; BUN/Creatinine Ratio 13; Blood Urea Nitrogen 10 mg/dL (7-17); Carbon Dioxide 27 mmol/L (22-30); Chloride 102.6 mmol/L (98-107); Glucose 145 mg/dL (65-100); Potassium 4.4 mmol/L (3.6-5.0); Sodium 143 mmol/L (137-145)
[2017-07-15] MEDS: PEPCID IV SCH ×2 (09:17→21:47)
[2017-07-15] MEDS: LASIX IV SCH ×2 (09:17→21:47)
[2017-07-15] MEDS: VANCOMYCIN 2,000 MG in NACL 0.9% 500 ML 500 ML IV SCH ×2 (09:18→22:02)
[2017-07-15] MEDS: NORCO 5/325 PO PRN (09:54)
--- NOTE | 2017-07-15 12:47 | Progress Note ---
Assessment and Plan 36 yo aaf: Acute respiratory failure - now improved * likely due to asp pna Chest pain - pleuritic in nature; ECG with no acute ischemic findings * ct chest neg for pe * trop neg * ech w/o acute changes H/o severe menorrhagia causing iron deficiency anemia, s/p recent robotic hysterectomy with right salpingectomy and lysis of adhesions on 07/12/2017 at [facility] Plan: tte reviewed d/c lasix cont abx stable cv status ischemic w/u as outpt not on asa due to anemia Subjective Date of service: 07/15/17 Interval history: i feel much better Objective Vital Signs Temp Pulse Pulse Pulse Resp Resp Resp 07/15/17 10:03 85 20 07/15/17 09:53 07/15/17 09:50 83 21 07/15/17 04:00 98.0 F 86 18 07/15/17 02:02 07/15/17 02:00 89 89 18 18 07/15/17 01:49 93 H 18 07/15/17 00:35 102 H 07/15/17 00:14 07/15/17 00:09 07/14/17 21:40 103 H 22 07/14/17 21:33 93 H 19 07/14/17 20:20 24 07/14/17 20:01 98.6 F 110 H 24 07/14/17 19:45 22 07/14/17 19:35 20 07/14/17 19:31 25 H 07/14/17 19:16 102 H 18 07/14/17 19:00 99 H 24 07/14/17 18:46 105 H 27 H 07/14/17 18:30 100 H 21 07/14/17 18:16 98 H 19 BP BP Pulse Ox 07/15/17 10:03 07/15/17 09:53 100 07/15/17 09:50 07/15/17 04:00 100/59 98 07/15/17 02:02 94 07/15/17 02:00 07/15/17 01:49 07/15/17 00:35 07/15/17 00:14 100 07/15/17 00:09 100 07/14/17 21:40 117/69 07/14/17 21:33 117/69 100 07/14/17 20:20 07/14/17 20:01 122/75 124/75 100 07/14/17 19:45 122/69 100 07/14/17 19:35 07/14/17 19:31 122/69 07/14/17 19:16 122/69 100 07/14/17 19:00 122/69 100 07/14/17 18:46 126/81 92 07/14/17 18:30 126/81 100 07/14/17 18:16 131/80 100 - Physical Examination HEENT: Positive: PERRL, Normocephaly, Mucus Membranes Moist Neck: Positive: neck supple, trachea midline Neuro: Positive: Grossly Intact, Cranial Nerve 2-12 Intact Abdomen: Positive: Unremarkable, Soft, Active Bowel Sounds. Negative: Tender Skin: Positive: Clear. Negative: Rash, Wound Musculoskeletal: No Fluid Collection, No Pain, Normal Range of Motion Extremities: Absent: edema - Labs and Meds Comprehensive Metabolic Panel 07/15/17 Range/Units 05:34 Sodium 143 (137-145) mmol/L Potassium 4.4 D (3.6-5.0) mmol/L Chloride 102.6 (98-107) mmol/L Carbon Dioxide 27 (22-30) mmol/L BUN 10 (7-17) mg/dL Creatinine 0.8 (0.7-1.2) mg/dL Glucose 145 H (65-100) mg/dL Calcium 8.0 L (8.4-10.2) mg/dL - Imaging and Cardiology EKG: report reviewed (sinus tachycardia) Echo: pending - EKG Sinus rhythms and dysrhythmias: sinus tachycardia
--- NOTE | 2017-07-15 14:15 | Progress Note ---
Assessment and Plan Assessment and plan: 6-year-old -[place] female with past medical history of asthma comes in for increasing shortness of breath and wheezing since a.m. Patient was found to be very hypoxic by the EMS. Patient was in the 70s and 80s of oxygen saturation. Patient recently had a robotic hysterectomy. No postop complications. Patient apparently had emesis yesterday and choked on some of her vomitus. Patient had an uneventful night but in the morning was very short of breath and wheezing. Also fever present. Patient has a history of asthma which is in remission. (1) Acute respiratory failure with hypoxia Secondary to aspiration pneumonia. Patient on BiPAP. DuoNeb and broad- spectrum antibiotics initiated. Intubation if necessary. judicious use of IV pain medication (2) Aspiration pneumonia Patient aspirated on vomitus yesterday. Broad spectrum antibiotic coverage with IV Zosyn and vancomycin. antibiotic coverage. Blood cultures and sputum cultures ordered (3) Asthma Has wheezing now which is secondary to her aspiration pneumonia and reactive airway disease. Symptomatic treatment. (4)morbid Obesity * Recommeded weight loss. patient verbalized understanding. (5)DVT prophylaxis Current Visit: Yes Status: Acute Plan to address problem: Lovenox 40 mg subcutaneous daily History Interval history: patient seen and examined, in no acute distress. complains of pain in the abdomen in addition to her chronic pain, states it was improved by her home oral medication. Nursing reports patient requesting multiple IV pain meds. Hospitalist Physical - Physical exam Narrative exam: VITAL SIGNS: Reviewed. GENERAL: The patient appeared well nourished and normally developed. Vital signs as documented. HEAD: No signs of head trauma. EYES: Pupils are equal. Extraocular motions intact. EARS: Hearing grossly intact. MOUTH: Oropharynx is normal. NECK: No adenopathy, no JVD. CHEST: Chest with clear breath sounds bilaterally. No wheezes, rales, or rhonchi. CARDIAC: Regular rate and rhythm. S1 and S2, without murmurs, gallops, or rubs. VASCULAR: No Edema. Peripheral pulses normal and equal in all extremities. ABDOMEN: Soft, without detectable tenderness. No sign of distention. No rebound or guarding, and no masses palpated. Bowel Sounds normal. MUSCULOSKELETAL: Good range of motion of all major joints. Extremities without clubbing, cyanosis or edema. NEUROLOGIC EXAM: Alert and oriented x 3. No focal sensory or strength deficits. Speech normal. Follows commands. PSYCHIATRIC: Mood normal. SKIN: No rash or lesions. - Constitutional Vitals: Temp Pulse Resp BP Pulse Ox 98.0 F 85 20 100/59 100 07/15/17 04:00 07/15/17 10:03 07/15/17 10:03 07/15/17 04:00 07/15/17 09:53 General appearance: Present: severe distress Results - Labs CBC & Chem 7: 07/16/17 09:37 07/16/17 09:37 Labs: Laboratory Last Values WBC 11.7 K/mm3 (4.5-11.0) H 07/14/17 14:30 RBC 5.38 M/mm3 (3.65-5.03) H 07/14/17 14:30 Hgb 8.9 gm/dl (10.1-14.3) L 07/14/17 14:30 Hct 31.5 % (30.3-42.9) 07/14/17 14:30 MCV 59 fl (79-97) L 07/14/17 14:30 MCH 17 pg (28-32) L 07/14/17 14:30 MCHC 28 % (30-34) L 07/14/17 14:30 RDW 32.6 % (13.2-15.2) H 07/14/17 14:30 Plt Count 253 K/mm3 (140-440) 07/14/17 14:30 Add Manual Diff Complete 07/14/17 14:30 Total Counted 100 07/14/17 14:30 Seg Neuts % (Manual) 86.0 % (40.0-70.0) H 07/14/17 14:30 Band Neutrophils % 0 % 07/14/17 14:30 Lymphocytes % (Manual) 11.0 % (13.4-35.0) L 07/14/17 14:30 Reactive Lymphs % (Man) 0 % 07/14/17 14:30 Monocytes % (Manual) 3.0 % (0.0-7.3) 07/14/17 14:30 Eosinophils % (Manual) 0 % (0.0-4.3) 07/14/17 14:30 Basophils % (Manual) 0 % (0.0-1.8) 07/14/17 14:30 Metamyelocytes % 0 % 07/14/17 14:30 Myelocytes % 0 % 07/14/17 14:30 Promyelocytes % 0 % 07/14/17 14:30 Blast Cells % 0 % 07/14/17 14:30 Nucleated RBC % Not Reportable 07/14/17 14:30 Seg Neutrophils # Man 10.1 K/mm3 (1.8-7.7) H 07/14/17 14:30 Band Neutrophils # 0.0 K/mm3 07/14/17 14:30 Lymphocytes # (Manual) 1.3 K/mm3 (1.2-5.4) 07/14/17 14:30 Abs React Lymphs (Man) 0.0 K/mm3 07/14/17 14:30 Monocytes # (Manual) 0.4 K/mm3 (0.0-0.8) 07/14/17 14:30 Eosinophils # (Manual) 0.0 K/mm3 (0.0-0.4) 07/14/17 14:30 Basophils # (Manual) 0.0 K/mm3 (0.0-0.1) 07/14/17 14:30 Metamyelocytes # 0.0 K/mm3 07/14/17 14:30 Myelocytes # 0.0 K/mm3 07/14/17 14:30 Promyelocytes # 0.0 K/mm3 07/14/17 14:30 Blast Cells # 0.0 K/mm3 07/14/17 14:30 WBC Morphology Not Reportable 07/14/17 14:30 Hypersegmented Neuts Not Reportable 07/14/17 14:30 Hyposegmented Neuts Not Reportable 07/14/17 14:30 Hypogranular Neuts Not Reportable 07/14/17 14:30 Smudge Cells Not Reportable 07/14/17 14:30 Toxic Granulation Not Reportable 07/14/17 14:30 Toxic Vacuolation Not Reportable 07/14/17 14:30 Dohle Bodies Not Reportable 07/14/17 14:30 Pelger-Huet Anomaly Not Reportable 07/14/17 14:30 Pamela Rods Not Reportable 07/14/17 14:30 Platelet Estimate Consistent w auto 07/14/17 14:30 Clumped Platelets Not Reportable 07/14/17 14:30 Plt Clumps, EDTA Not Reportable 07/14/17 14:30 Large Platelets Not Reportable 07/14/17 14:30 Giant Platelets Not Reportable 07/14/17 14:30 Platelet Satelliting Not Reportable 07/14/17 14:30 Plt Morphology Comment Not Reportable 07/14/17 14:30 RBC Morphology Not Reportable 07/14/17 14:30 Dimorphic RBCs Not Reportable 07/14/17 14:30 Polychromasia Not Reportable 07/14/17 14:30 Hypochromasia 3+ 07/14/17 14:30 Poikilocytosis Not Reportable 07/14/17 14:30 Anisocytosis 3+ 07/14/17 14:30 Microcytosis 2+ 07/14/17 14:30 Macrocytosis Not Reportable 07/14/17 14:30 Spherocytes Not Reportable 07/14/17 14:30 Pappenheimer Bodies Not Reportable 07/14/17 14:30 Sickle Cells Not Reportable 07/14/17 14:30 Target Cells Rare 07/14/17 14:30 Tear Drop Cells Few 07/14/17 14:30 Ovalocytes 1+ 07/14/17 14:30 Helmet Cells Not Reportable 07/14/17 14:30 [place] Bodies Not Reportable 07/14/17 14:30 [place] Rings Not Reportable 07/14/17 14:30 [place] Cells Not Reportable 07/14/17 14:30 Bite Cells Not Reportable 07/14/17 14:30 Crenated Cell Not Reportable 07/14/17 14:30 Elliptocytes 1+ 07/14/17 14:30 Acanthocytes (Spur) Not Reportable 07/14/17 14:30 Rouleaux Not Reportable 07/14/17 14:30 Hemoglobin C Crystals Not Reportable 07/14/17 14:30 Schistocytes Not Reportable 07/14/17 14:30 Malaria parasites Not Reportable 07/14/17 14:30 Freddy Bodies Not Reportable 07/14/17 14:30 Hem Pathologist Commnt No 07/14/17 14:30 PT 14.9 Sec. (12.2-14.9) 07/14/17 14:30 INR 1.11 (0.87-1.13) 07/14/17 14:30 APTT 35.4 Sec. (24.2-36.6) 07/14/17 14:30 D-Dimer 1127.68 ng/mlDDU (0-234) H 07/14/17 14:30 POC ABG pH 7.415 (7.35-7.45) 07/14/17 14:55 POC ABG pCO2 40.1 (35-45) 07/14/17 14:55 POC ABG pO2 46 (80-105) L 07/14/17 14:55 POC ABG HCO3 25.7 07/14/17 14:55 POC ABG Total CO2 27 07/14/17 14:55 POC ABG O2 Sat 82 07/14/17 14:55 POC ABG Base Excess 1 07/14/17 14:55 FiO2 21 % 07/14/17 14:55 Sodium 143 mmol/L (137-145) 07/15/17 05:34 Potassium 4.4 mmol/L (3.6-5.0) D 07/15/17 05:34 Chloride 102.6 mmol/L (98-107) 07/15/17 05:34 Carbon Dioxide 27 mmol/L (22-30) 07/15/17 05:34 Anion Gap 18 mmol/L 07/15/17 05:34 BUN 10 mg/dL (7-17) 07/15/17 05:34 Creatinine 0.8 mg/dL (0.7-1.2) 07/15/17 05:34 Estimated GFR > 60 ml/min 07/15/17 05:34 BUN/Creatinine Ratio 13 % 07/15/17 05:34 Glucose 145 mg/dL (65-100) H 07/15/17 05:34 Hemoglobin A1c < 4.2 % (4-6) 07/14/17 14:30 Lactic Acid 1.40 mmol/L (0.7-2.0) 07/14/17 16:29 Calcium 8.0 mg/dL (8.4-10.2) L 07/15/17 05:34 Total Bilirubin 0.50 mg/dL (0.1-1.2) 07/14/17 14:30 AST 74 units/L (5-40) H 07/14/17 14:30 ALT 59 units/L (7-56) H 07/14/17 14:30 Alkaline Phosphatase 122 units/L (35-129) 07/14/17 14:30 Troponin T < 0.010 ng/mL (0.00-0.029) 07/14/17 14:30 NT-Pro-B Natriuret Pep 707.2 pg/mL (0-450) H 07/14/17 14:37 Total Protein 6.9 g/dL (6.3-8.2) 07/14/17 14:30 Albumin 3.2 g/dL (3.9-5) L 07/14/17 14:30 Albumin/Globulin Ratio 0.9 % 07/14/17 14:30 Blood Type O POSITIVE 07/14/17 14:37 Antibody Screen Negative 07/14/17 14:37 Crossmatch See Detail 07/14/17 14:37
[2017-07-15] MEDS ORDERED: MORPHINE IV PRN (14:18)
--- NOTE | 2017-07-15 14:56 | Progress Note ---
Assessment and Plan A: POD#3 s/p robotic hysterectomy, right salpingectomy and lysis of adhesions HD#2 s/p readmission for aspiration pneumonia Morbid Obesity Asthma Hypertension Depression P: Care plan per admitting service. She may benefit from an abdominal binder. Subjective - Subjective Date of service: 07/15/17 Principal diagnosis: s/p robotic hysterectomy, admitted with aspiration pneumonia Interval history: Pt underwent robotic hysterectomy, right salpingectomy and lysis of adhesions on 07/12/[address] Colon. Her postoperative course was uncomplicated and she was discharge on POD#1 (07/13/17). She was readmitted on 07/14/17 with chest pain and dyspnea, ruled out for PE and diagnosed with aspiration pneumonia. She continues to have inspiratory chest pain but feels much better today. She reports incisional pain and a desire for more frequent pain medication. Patient reports: appetite normal, flatus, bowel movement, pain poorly controlled , ambulating normally Objective - Vital Signs Latest vital signs: Vital Signs Temp Pulse Pulse Pulse Resp Resp Resp 07/15/17 10:03 85 20 07/15/17 09:53 07/15/17 09:50 83 21 07/15/17 04:00 98.0 F 86 18 07/15/17 02:02 07/15/17 02:00 89 89 18 18 07/15/17 01:49 93 H 18 07/15/17 00:35 102 H 07/15/17 00:14 07/15/17 00:09 07/14/17 21:40 103 H 22 07/14/17 21:33 93 H 19 07/14/17 20:20 24 07/14/17 20:01 98.6 F 110 H 24 07/14/17 19:45 22 07/14/17 19:35 20 07/14/17 19:31 25 H 07/14/17 19:16 102 H 18 07/14/17 19:00 99 H 24 07/14/17 18:46 105 H 27 H 07/14/17 18:30 100 H 21 07/14/17 18:16 98 H 19 BP BP Pulse Ox 07/15/17 10:03 07/15/17 09:53 100 07/15/17 09:50 07/15/17 04:00 100/59 98 07/15/17 02:02 94 07/15/17 02:00 07/15/17 01:49 07/15/17 00:35 07/15/17 00:14 100 07/15/17 00:09 100 07/14/17 21:40 117/69 07/14/17 21:33 117/69 100 07/14/17 20:20 07/14/17 20:01 122/75 124/75 100 07/14/17 19:45 122/69 100 07/14/17 19:35 07/14/17 19:31 122/69 07/14/17 19:16 122/69 100 07/14/17 19:00 122/69 100 07/14/17 18:46 126/81 92 07/14/17 18:30 126/81 100 07/14/17 18:16 131/80 100 Intake and Output 07/14/17 07/15/17 07/15/17 22:59 06:59 14:59 Intake Total 100 Output Total 250 Balance -250 100 Intake: IV 100 ZOSYN/NS 4.5GM/100ML 4.5 100 gm In 100 ml @ 200 mls/hr IV Q8HR [facility] Rx#: [id number] Output: Urine 250 Void 250 Other: Total, Output Amount 250 Voiding Method Bedside Commode Toilet # Voids Void 1 Weight 115.666 kg - Exam Breasts: Present: deferred Cardiovascular: Present: Regular rate Lungs: Present: Clear to auscultation Abdomen: Present: soft (obese), normal bowel sounds Extremities: Present: normal. Absent: tenderness Incision: Present: intact - Labs Labs: Abnormal lab results 07/15/17 Range/Units 05:34 Glucose 145 H (65-100) mg/dL Calcium 8.0 L (8.4-10.2) mg/dL
[2017-07-15] MEDS: PERCOCET 5/325 PO PRN (15:49)
--- NOTE | 2017-07-15 16:20 | Progress Note ---
Assessment and Plan Acute Hypoxemic Respiratory Failure Aspiration Pneumonitis H/O Asthma HTN Obesity Anemia s/p recent hysterectomy - continue empiric AB's - supplemental oxygen for O2 Sats , 90% - continue aspiration precautions - follow cultures including sputum C&S - prn analgesia - outpatient sleep clinic evaluation for ADAM recommended - continue GI & VTE prophylaxis with pepcid and heparin - taper off systemic steroids - tentatively can de-escalate AB's after 72hrs of negative BC's ...improved ...will re-evaluate in am & prn Subjective Date of service: 07/15/17 Principal diagnosis: Acute Hypoxemic Respiratory Failure, Aspiration Pneumonia Interval history: Patient is seen today for: Seen and examined at bedside; 24hour events reviewed; nursing and respiratory care staff consulted; no adverse overnight events reported to me; resting in bed ; breathing is easier; no N/V/F/C; no chest pains or palpitations Objective Vital Signs - 12hr 07/15/17 07/15/17 07/15/17 09:50 09:53 10:03 Pulse Rate [ 83 85 Bilateral Upper Lobe] Respiratory 21 20 Rate [Bilateral Upper Lobe] O2 Sat by Pulse 100 Oximetry 07/15/17 15:13 Pulse Rate [ 100 H Bilateral Upper Lobe] Respiratory 88 H Rate [Bilateral Upper Lobe] O2 Sat by Pulse Oximetry Constitutional: alert, appears uncomfortable Eyes: non-icteric ENT: oropharynx moist, other (No thyromegaly) Neck: supple, no lymphadenopathy, no JVD, other (no bruit) Effort: mildly labored Ascultation: Bilateral: diminished breath sounds, rhonchi (bases) Cardiovascular: regular rate and rhythm, other (no rubs or murmurs) Gastrointestinal: normoactive bowel sounds, soft, non-tender, non-distended, other (No HSM) Integumentary: normal, other (no rash no cellulitis) Extremities: no cyanosis, no edema, pulses normal, no ischemia or petechiae, other (palpable pedal pulses bilaterally) Neurologic: normal mental status, non-focal exam, pupils equal and round, motor strength normal and, other (moves all 4 extremities) Psychiatric: mood appropriate, affect normal CBC and BMP: 07/16/17 09:37 07/16/17 09:37 ABG, PT/INR, D-dimer: ABG POC ABG pH 7.415 (7.35-7.45) 07/14/17 14:55 POC ABG pCO2 40.1 (35-45) 07/14/17 14:55 POC ABG pO2 46 (80-105) L 07/14/17 14:55 POC ABG HCO3 25.7 07/14/17 14:55 POC ABG Total CO2 27 07/14/17 14:55 POC ABG O2 Sat 82 07/14/17 14:55 PT/INR, D-dimer PT 14.9 Sec. (12.2-14.9) 07/14/17 14:30 INR 1.11 (0.87-1.13) 07/14/17 14:30 D-Dimer 1127.68 ng/mlDDU (0-234) H 07/14/17 14:30 Abnormal lab findings: Abnormal Labs 07/15/17 05:34 Glucose 145 H Calcium 8.0 L
[2017-07-15] MEDS: MOTRIN PO SCH ×2 (18:48→23:56)
[2017-07-15] MEDS: HEPARIN SUB-Q SCH (21:48)
[2017-07-16] MEDS: DUONEB *Not for PRN Use IH SCH ×4 (03:10→20:30)
--- NOTE | 2017-07-16 05:16 | Consultation ---
PULMONARY CRITICAL CARE EVALUATION NOTE CONSULTING PHYSICIAN: from the Emergency Room. REASON FOR CONSULTATION: Acute hypoxemic respiratory failure, concerned for an acute PE and evaluate for possible TPA administration. CHIEF COMPLAINT AND HISTORY OF PRESENT ILLNESS: The patient is a 36-year-old -Polish female with past medical history significant for a recent hysterectomy that apparently was an elective hysterectomy done a couple of weeks ago or so, came into the Emergency Room complaining of wheezing and shortness of breath since earlier in the day. She had a pleuritic type chest pain. She denied leg pain or swelling or any suggestion of a DVT. She had cough, it was nonproductive of hemoptysis. She stated that whenever she coughed up, it was clear looking phlegm. Chest pain was central. It did not radiate to her back, to her neck, to her arms. There were no associated palpitations. There was no significant change with exertion and there was no diaphoresis. She did have some orthopnea that was of new onset. I did speak with the Emergency Room physician. She was seen by the vascular team, who were planning to go get angiogram done the conventional way as the CT scan was down. Ultimately, she gave a history of emesis and suggestive of an aspiration event. When I stopped by to see her, she was still holding on to her chest, but feeling a little bit better. She was still denying fevers or chills. She denies any sick contacts at home. Now in terms of tobacco use/abuse history, she denies any history of tobacco use or abuse whatsoever. PAST MEDICAL HISTORY: She is morbidly obese. She has a history of asthma, but has not had any symptoms for years. PAST SURGICAL HISTORY: She has had a cholecystectomy in the past. She had a recent hysterectomy. MEDICATIONS: She was on at the time I stopped by to see her were reviewed and included the following: Albuterol and Atrovent treatments nebulized q.4 hours, Pepcid 20 mg IV b.i.d. had been ordered, Lasix 40 mg IV b.i.d., p.r.n. Motrin, Solu-Medrol 40 mg IV q.8 hours., Zosyn 4.5 grams IV q.8 hours, and vancomycin 2 grams IV q.12 hours. ALLERGIES: No known drug allergies. DIET: Morbidly obese. Denies any acute weight loss or gain preceding few weeks to months, BMI 46.6. FAMILY AND SOCIAL HISTORY: Lives in the community. I believe she is . Denies alcohol, tobacco, or illicit drug use or abuse. Family history is not contributory. REVIEW OF SYSTEMS: No loss of consciousness. No new onset seizures. No new onset focal weakness. She denies witnessed apneas. I believe she states she has had a sleep evaluation in the past. Complete 13-system review of systems obtained. Pertinent positives and/or negatives as in body of history above, otherwise they are noncontributory. PHYSICAL EXAMINATION: VITAL SIGNS: At presentation, she was afebrile, temperature 98.6, pulse was 123, respiratory rate 26, blood pressure 133/63, and oxygen sats were 95%, inspired oxygen concentration was not recorded. GENERAL: She was normocephalic, atraumatic, anxious with again moderate respiratory distress. HEAD, EYES, EARS, NOSE AND THROAT: She was anicteric. No conjunctival erythema, no gross jugular venous distention. No thyromegaly. Oropharynx is a Mallampati #4 oropharynx with mild oropharyngeal pallor. NECK: Grossly, there were no palpable lymph nodes in the supraclavicular or submandibular lymph node chains. LUNGS: Auscultation of both lung shi significant for bilateral rhonchi. Slightly prolonged expiratory phase, faint expiratory wheezing. HEART: Heart sounds 1 and 2 are heard. They were regular in rate and rhythm at the time of my evaluation. ABDOMEN: Soft, full, bowel sounds positive. Nontender. No hepatosplenomegaly. EXTREMITIES: Without overt digital clubbing, cyanosis, or pedal edema. Pedal pulses are palpable bilaterally. NEUROLOGIC: Pupils are equal, round, reactive to light and accommodation. Extraocular muscle movements are intact. She moves all 4 extremities spontaneously. No fasciculations. No spasticity to her musculature. SKIN: Skin was of normal turgor, no rashes, no cellulitis. LABORATORY DATA: From my review are as follows: White cell count 11,700, hemoglobin 8.9, hematocrit 31.5, and platelet count 253. No band forms were reported. D-dimer was elevated at 1127. Arterial blood gas showed a pH of 7.42, pCO2 of 40, pO2 of 46 and that was on room air. Serum sodium was 142, potassium 3.5, chloride 103, bicarbonate 26, BUN 11, creatinine 0.8, and glucose 129. Hemoglobin A1c was less than 4.2. Lactic acid level was elevated at 2.2, AST was up at 74, ALT 59. CRP was elevated at 15, BNP was elevated at 707. MICROBIOLOGY STUDIES: Blood cultures have been drawn and sent to the labs. Radiographic studies have been reviewed. Again, she had bilateral perihilar infiltrates and upper lobe infiltrates. Otherwise, borderline to gross cardiomegaly. No pneumothorax, no gross bony fracture. A CT angio of the chest was finally done. I have reviewed the CTA of angio myself, descent contrast phase timing. I do not see any gross filling defects consistent with significant pulmonary emboli. The main findings are patchy areas of consolidation in the dependent position involving the posterior surfaces of the lungs and the bases, but also the upper lobes. The lung windows do show some mild element of ground glass opacification, but really multilobar infiltrates and consolidation. I did not note significant mediastinal adenopathy. ASSESSMENT AND PLAN: 1. Acute hypoxemic respiratory failure. 2. Likely aspiration pneumonia/pneumonitis. 3. Morbid obesity. 4. Cardiomyopathy, possible congestive heart failure. 5. Acute bronchospasm. 6. Anemia. 7. Possible obstructive sleep apnea. PLAN: 1. Continue supplemental oxygen to keep sats greater than or equal to 94% acutely. 2. Continue bronchodilators. 3. Continue systemic steroids in the short term based on their history of asthma. 4. Continue empiric antibiotic therapy. I do feel we can downgrade to Levaquin monotherapy. However, I will defer that to the attending physician. CRP level is elevated and I do think we should cover with antibiotics. 5. Continue diuresis. BUN and creatinine suggest there is room to diurese and picture is consistent with an element of pulmonary edema and I will defer to Cardiology otherwise. Follow up on 2D echo. We will be continuing GI prophylaxis. I will put her on DVT prophylaxis. Flu and pneumonia vaccination will be per protocol. I think she can be managed in the telemetry. I should mention bilevel positive airway pressure ventilation therapy will be offered on a p.r.n. basis. Thank you very much for the consult. We will follow along and make further recommendations as picture progresses/becomes clearer. At this time, I spent about 38-40 minutes in the care of this patient and I have discussed the care plan with the patient. This is excluding time spent in conversation with the Emergency Room physician formulating the care plan. JOB# [id number] HENOK/GAGE
[2017-07-16] MEDS: ZOSYN/NS 4.5GM/100ML 4.5 GM/100 ML VIAL IV SCH ×3 (05:27→21:01)
[2017-07-16] MEDS: MOTRIN PO SCH ×3 (05:27→18:27)
[2017-07-16] MEDS: PERCOCET 5/325 PO PRN (06:28)
--- NOTE | 2017-07-16 10:00 | Progress Note ---
Assessment and Plan A: POD#4 s/p robotic hysterectomy, right salpingectomy and lysis of adhesions HD#3 s/p readmission for aspiration pneumonia on IV antibiotics Morbid Obesity Asthma Hypertension Depression P: Care plan per admitting service. Doing with regard to postoperative healing. Subjective - Subjective Date of service: 07/16/17 Principal diagnosis: Acute Hypoxemic Respiratory Failure, Aspiration Pneumonia Interval history: Pt feels better today. Afebrile overnight. Pain control much improved overnight. Patient reports: appetite normal, voiding normally, pain well controlled, flatus , bowel movement, no ambulating normally (minimally in the room ) Objective - Vital Signs Latest vital signs: Vital Signs Temp Pulse Pulse Resp Resp BP Pulse Ox 07/16/17 04:00 98.1 F 65 18 131/70 99 07/16/17 03:29 76 18 07/16/17 03:12 69 18 07/16/17 01:00 98.2 F 81 18 100/54 100 07/16/17 00:00 80 07/15/17 21:40 91 H 20 07/15/17 21:23 87 18 100 07/15/17 21:00 98.1 F 89 18 114/60 98 07/15/17 16:00 82 07/15/17 15:13 100 H 88 H 07/15/17 10:03 85 20 Intake and Output 07/15/17 07/16/17 07/16/17 22:59 06:59 14:59 Intake Total 650 Output Total 650 Balance 0 Intake: IV 200 ZOSYN/NS 4.5GM/100ML 4.5 200 gm In 100 ml @ 200 mls/hr IV Q8HR [facility] Rx#: [id number] Oral 450 Output: Urine 650 Void 650 Other: Total, Intake Amount 450 Total, Output Amount 650 Voiding Method Toilet Toilet # Bowel Movements 1 - Exam Breasts: Present: deferred Cardiovascular: Present: Regular rate Lungs: Present: Clear to auscultation (improved air movement compared to yesterday ) Abdomen: Present: soft (obese), abnormal bowel sounds (hypoactive) Extremities: Present: edema (trace ). Absent: tenderness Incision: Present: intact
[2017-07-16 10:22] LABS: White Blood Count 13.9 K/mm3 (4.5-11.0)
[2017-07-16 10:28] LABS: Anion Gap 19 mmol/L; BUN/Creatinine Ratio 23; Blood Urea Nitrogen 16 mg/dL (7-17); Calcium 8.5 mg/dL (8.4-10.2); Carbon Dioxide 26 mmol/L (22-30); Chloride 97.8 mmol/L (98-107); Glucose 183 mg/dL (65-100); Potassium 4.1 mmol/L (3.6-5.0); Sodium 139 mmol/L (137-145)
[2017-07-16] MEDS: MORPHINE IV PRN ×2 (10:43→20:56)
[2017-07-16] MEDS: VANCOMYCIN 2,000 MG in NACL 0.9% 500 ML 500 ML IV SCH ×2 (10:43→22:04)
[2017-07-16] MEDS: LASIX IV SCH ×2 (10:44→21:01)
[2017-07-16] MEDS: HEPARIN SUB-Q SCH ×2 (10:45→21:01)
[2017-07-16] MEDS: PEPCID IV SCH ×2 (10:45→21:01)
[2017-07-16 10:46] LABS: Mean Corpuscular HGB Conc 29 % (30-34); Red Blood Count 5.43 M/mm3 (3.65-5.03)
[2017-07-16 11:54] LABS: Hematocrit 31.2 % (30.3-42.9); Hemoglobin 9.1 gm/dl (10.1-14.3); Mean Corpuscular Hemoglobin 17 pg (28-32); Mean Corpuscular Volume 57 fl (79-97); Platelet Count 275 K/mm3 (140-440); Red Cell Distribution Width 33.4 % (13.2-15.2)
--- NOTE | 2017-07-16 12:13 | Progress Note ---
Assessment and Plan 36 yo aaf: Acute respiratory failure - now improved * likely due to asp pna Chest pain - pleuritic in nature; ECG with no acute ischemic findings * ct chest neg for pe * trop neg * ech w/o acute changes H/o severe menorrhagia causing iron deficiency anemia, s/p recent robotic hysterectomy with right salpingectomy and lysis of adhesions on 07/12/2017 at [facility] Plan: stable cv status ischemic w/u as outpt not on asa due to anemia Subjective Date of service: 07/16/17 Principal diagnosis: Acute Hypoxemic Respiratory Failure, Aspiration Pneumonia Interval history: no complaints, at bedside Objective Vital Signs Temp Pulse Pulse Resp Resp BP Pulse Ox 07/16/17 04:00 98.1 F 65 18 131/70 99 07/16/17 03:29 76 18 07/16/17 03:12 69 18 07/16/17 01:00 98.2 F 81 18 100/54 100 07/16/17 00:00 80 07/15/17 21:40 91 H 20 07/15/17 21:23 87 18 100 07/15/17 21:00 98.1 F 89 18 114/60 98 07/15/17 16:00 82 07/15/17 15:13 100 H 88 H - Physical Examination HEENT: Positive: PERRL, Normocephaly, Mucus Membranes Moist Neck: Positive: neck supple, trachea midline Neuro: Positive: Grossly Intact, Cranial Nerve 2-12 Intact Abdomen: Positive: Unremarkable, Soft, Active Bowel Sounds. Negative: Tender Skin: Positive: Clear. Negative: Rash, Wound Musculoskeletal: No Fluid Collection, No Pain, Normal Range of Motion Extremities: Absent: edema - Labs and Meds CBC 07/16/17 Range/Units 09:37 WBC 13.9 H (4.5-11.0) K/mm3 RBC 5.43 H (3.65-5.03) M/mm3 Hgb 9.1 L (10.1-14.3) gm/dl Hct 31.2 (30.3-42.9) % Plt Count 275 (140-440) K/mm3 Comprehensive Metabolic Panel 07/16/17 Range/Units 09:37 Sodium 139 (137-145) mmol/L Potassium 4.1 (3.6-5.0) mmol/L Chloride 97.8 L (98-107) mmol/L Carbon Dioxide 26 (22-30) mmol/L BUN 16 (7-17) mg/dL Creatinine 0.7 (0.7-1.2) mg/dL Glucose 183 H (65-100) mg/dL Calcium 8.5 (8.4-10.2) mg/dL - Imaging and Cardiology EKG: report reviewed (sinus tachycardia) Echo: pending - EKG Sinus rhythms and dysrhythmias: sinus tachycardia
--- NOTE | 2017-07-16 13:58 | Progress Note ---
Assessment and Plan (1) Acute respiratory failure with hypoxia Secondary to aspiration pneumonia. Continue with Bronchodilators and BiPAP. Wean off BIPAP as tolerated. continue iv Zosyn adn Vanc . (2) Aspiration pneumonia Patient aspirated on vomitus yesterday. On IV Zosyn and vancomycin. antibiotic coverage. Blood cultures and sputum cultures report - no groeht so far (3) Asthma Has wheezing now which is secondary to her aspiration pneumonia and reactive airway disease. Continue with Duoneb and iv solumedrol. (4)morbid Obesity * Recommeded weight loss. patient verbalized understanding. (5)DVT prophylaxis Lovenox 40 mg subcutaneous daily. GI PPx with pepcid Subjective Date of service: 07/16/17 Principal diagnosis: Acute Hypoxemic Respiratory Failure, Aspiration Pneumonia Interval history: Still having shortness of breath and cough Objective - Constitutional Vitals: Vital Signs - 12hr 07/16/17 07/16/17 07/16/17 03:12 03:29 04:00 Temperature 98.1 F Pulse Rate 65 Pulse Rate [ Anterior Bilateral Throughout] Pulse Rate [ 69 76 Bilateral Upper Lobe] Respiratory 18 Rate Respiratory Rate [Anterior Bilateral Throughout] Respiratory 18 18 Rate [Bilateral Upper Lobe] Blood Pressure 131/70 [Right] O2 Sat by Pulse 99 Oximetry 07/16/17 07/16/17 07/16/17 08:50 09:00 10:15 Temperature 98.0 F Pulse Rate 94 H Pulse Rate [ 82 78 Anterior Bilateral Throughout] Pulse Rate [ Bilateral Upper Lobe] Respiratory 20 Rate Respiratory 20 20 Rate [Anterior Bilateral Throughout] Respiratory Rate [Bilateral Upper Lobe] Blood Pressure 138/79 [Right] O2 Sat by Pulse 98 2 L Oximetry General appearance: Present: no acute distress, well-nourished - EENT Eyes: PERRL, EOM intact - Neck Neck: supple, normal ROM - Respiratory Respiratory effort: normal Respiratory: bilateral: diminished - Cardiovascular Rhythm: regular Heart Sounds: Present: S1 & S2. Absent: gallop, rub Extremities: pulses intact, normal color, Full ROM - Gastrointestinal General gastrointestinal: Present: soft, non-tender, non-distended, normal bowel sounds - Integumentary Integumentary: clear, warm, dry - Musculoskeletal Musculoskeletal: 1, strength equal bilaterally - Neurologic Neurologic: moves all extremities - Psychiatric Psychiatric: memory intact, appropriate mood/affect, intact judgment & insight - Labs CBC & Chem 7: 07/16/17 09:37 07/16/17 09:37 Labs: Abnormal lab results 07/16/17 07/16/17 Range/Units 09:37 09:37 WBC 13.9 H (4.5-11.0) K/mm3 RBC 5.43 H (3.65-5.03) M/mm3 Hgb 9.1 L (10.1-14.3) gm/dl MCV 57 L (79-97) fl MCH 17 L (28-32) pg MCHC 29 L (30-34) % RDW 33.4 H (13.2-15.2) % Chloride 97.8 L (98-107) mmol/L Glucose 183 H (65-100) mg/dL
--- NOTE | 2017-07-16 16:11 | Progress Note ---
Assessment and Plan Acute Hypoxemic Respiratory Failure Aspiration Pneumonitis H/O Asthma HTN Obesity Anemia s/p recent hysterectomy - continue empiric AB's - supplemental oxygen for O2 Sats , 90% - continue aspiration precautions - follow cultures including sputum C&S - repeat CXR in am - prn analgesia - outpatient sleep clinic evaluation for ADAM recommended - continue GI & VTE prophylaxis with pepcid and heparin - taper off systemic steroids - tentatively can de-escalate AB's after 72hrs of negative BC's ...improved ...will re-evaluate in am & prn Subjective Date of service: 07/16/17 Principal diagnosis: Acute Hypoxemic Respiratory Failure, Aspiration Pneumonia Interval history: Patient is seen today for: Acute Hypoxemic Respiratory Failure, Aspiration Pneumonia; Obesity Seen and examined at bedside; 24hour events reviewed; nursing and respiratory care staff consulted; no adverse overnight events reported to me; resting in bed ; breathing is easier; no N/V/F/C; + cough no hemoptysis; states she has not been walking in halls yet and still with PERERA in room Objective Vital Signs - 12hr 07/16/17 07/16/17 07/16/17 08:50 09:00 10:15 Temperature 98.0 F Pulse Rate 94 H Pulse Rate [ 82 78 Anterior Bilateral Throughout] Respiratory 20 Rate Respiratory 20 20 Rate [Anterior Bilateral Throughout] Blood Pressure 138/79 [Right] O2 Sat by Pulse 98 2 L Oximetry 07/16/17 07/16/17 14:17 14:27 Temperature Pulse Rate Pulse Rate [ 88 86 Anterior Bilateral Throughout] Respiratory Rate Respiratory 18 18 Rate [Anterior Bilateral Throughout] Blood Pressure [Right] O2 Sat by Pulse Oximetry Constitutional: alert, appears uncomfortable Eyes: non-icteric ENT: oropharynx moist, other (No thyromegaly) Neck: supple, no lymphadenopathy, no JVD, other (no bruit) Effort: mildly labored Ascultation: Bilateral: diminished breath sounds, rhonchi (bases) Cardiovascular: regular rate and rhythm, other (no rubs or murmurs) Gastrointestinal: normoactive bowel sounds, soft, non-tender, non-distended, other (No HSM) Integumentary: normal, other (no rash no cellulitis) Extremities: no cyanosis, no edema, pulses normal, no ischemia or petechiae, other (palpable pedal pulses bilaterally) Neurologic: normal mental status, non-focal exam, pupils equal and round, motor strength normal and, other (moves all 4 extremities) Psychiatric: mood appropriate, affect normal CBC and BMP: 07/16/17 09:37 07/16/17 09:37 ABG, PT/INR, D-dimer: ABG POC ABG pH 7.415 (7.35-7.45) 07/14/17 14:55 POC ABG pCO2 40.1 (35-45) 07/14/17 14:55 POC ABG pO2 46 (80-105) L 07/14/17 14:55 POC ABG HCO3 25.7 07/14/17 14:55 POC ABG Total CO2 27 07/14/17 14:55 POC ABG O2 Sat 82 07/14/17 14:55 PT/INR, D-dimer PT 14.9 Sec. (12.2-14.9) 07/14/17 14:30 INR 1.11 (0.87-1.13) 07/14/17 14:30 D-Dimer 1127.68 ng/mlDDU (0-234) H 07/14/17 14:30 Abnormal lab findings: Abnormal Labs 07/15/17 07/16/17 07/16/17 05:34 09:37 09:37 WBC 13.9 H RBC 5.43 H Hgb 9.1 L MCV 57 L MCH 17 L MCHC 29 L RDW 33.4 H Chloride 97.8 L Glucose 145 H 183 H Calcium 8.0 L
[2017-07-16] MEDS: PROVENTIL IH PRN (17:23)
[2017-07-17] MEDS: DUONEB *Not for PRN Use IH SCH ×4 (01:06→19:59)
[2017-07-17] MEDS: MOTRIN PO SCH ×3 (02:22→17:23)
[2017-07-17] MEDS: LASIX IV SCH ×2 (05:14→17:17)
[2017-07-17] MEDS: ZOSYN/NS 4.5GM/100ML 4.5 GM/100 ML VIAL IV SCH (05:14)
[2017-07-17] MEDS: PROVENTIL IH PRN (05:45)
--- NOTE | 2017-07-17 08:50 | Progress Note ---
Assessment and Plan - Patient Problems (1) Acute respiratory failure with hypoxia Current Visit: Yes Status: Acute Plan to address problem: clinically stable no additional decompensation currently maintaining oxygenation continue IV antibiotics and supportive care (2) Aspiration pneumonia Current Visit: Yes Status: Acute Qualifiers: Aspiration pneumonia type: due to vomit Laterality: bilateral Lung location: L Subjective - Subjective Date of service: 07/17/17 Principal diagnosis: Acute Hypoxemic Respiratory Failure, Aspiration Pneumonia Interval history: 36y/o BF s/p robotic hysterectomy POD #5 readmitted for aspiration pneumonia. Patient currently receiving O2 via NC. She is without any significant complaints. IV abx vancomycin being administered. Slight elevation on wbc . Patient states pain is controlled. No experiencing any additional postoperative complaints Patient reports: appetite normal, voiding normally, pain well controlled Objective - Vital Signs Latest vital signs: Vital Signs Temp Pulse Pulse Resp Resp BP Pulse Ox 07/17/17 05:54 83 20 07/17/17 05:46 69 22 07/17/17 04:10 98.4 F 60 22 146/74 97 07/17/17 00:49 97.5 F L 78 18 117/61 99 07/16/17 21:00 22 07/16/17 20:48 99 07/16/17 20:47 84 26 H 07/16/17 20:31 98.3 F 86 20 142/80 99 07/16/17 20:30 82 28 H 07/16/17 20:24 97 H 07/16/17 17:33 85 18 07/16/17 17:23 66 18 07/16/17 14:27 86 18 07/16/17 14:17 88 18 07/16/17 10:15 98.0 F 94 H 20 138/79 2 L 07/16/17 09:00 78 20 07/16/17 08:50 82 20 98 Intake and Output 07/16/17 07/17/17 07/17/17 22:59 06:59 14:59 Intake Total 200 360 Balance 200 360 Intake: IV 200 ZOSYN/NS 4.5GM/100ML 4.5 200 gm In 100 ml @ 200 mls/hr IV Q8HR ARLENE Rx#: [id number] Oral 360 Other: Total, Intake Amount 120 Voiding Method Toilet # Voids Void 1 # Bowel Movements 0 - Labs Labs: Abnormal lab results 07/16/17 07/16/17 Range/Units 09:37 09:37 WBC 13.9 H (4.5-11.0) K/mm3 RBC 5.43 H (3.65-5.03) M/mm3 Hgb 9.1 L (10.1-14.3) gm/dl MCV 57 L (79-97) fl MCH 17 L (28-32) pg MCHC 29 L (30-34) % RDW 33.4 H (13.2-15.2) % Chloride 97.8 L (98-107) mmol/L Glucose 183 H (65-100) mg/dL
[2017-07-17] MEDS: PEPCID IV SCH (09:49)
[2017-07-17] MEDS: HEPARIN SUB-Q SCH ×2 (09:49→22:18)
[2017-07-17] MEDS: VANCOMYCIN 2,000 MG in NACL 0.9% 500 ML 500 ML IV SCH (09:53)
[2017-07-17] MEDS: PERCOCET 5/325 PO PRN ×2 (10:08→22:19)
--- NOTE | 2017-07-17 11:14 | Progress Note ---
Assessment and Plan Assessment and plan: 36-year-old -[place] female with past medical history of asthma comes in for increasing shortness of breath and wheezing since a.m. Patient was found to be very hypoxic by the EMS. Patient was in the 70s and 80s of oxygen saturation. Patient recently had a robotic hysterectomy. No postop complications. Patient apparently had emesis yesterday and choked on some of her vomitus. Patient had an uneventful night but in the morning was very short of breath and wheezing. Also fever present. Patient has a history of asthma which is in remission. (1) Acute respiratory failure with hypoxia Secondary to aspiration pneumonia. Patient on BiPAP. DuoNeb and broad- spectrum antibiotics initiated. Intubation if necessary. judicious use of IV pain medication Patient remains afebrile switch to PO steroids today and monitor Repeat chest xray (2) Aspiration pneumonia Patient aspirated on vomitus Leading to admission. started on Broad spectrum antibiotic coverage with IV Zosyn and vancomycin. will descalate today. she has been afebrile with no growth in cultures SWITCH TO PO LEVAQUIN TODAY (3) Asthma Has wheezing now which is secondary to her aspiration pneumonia and reactive airway disease. Symptomatic treatment. (4)morbid Obesity * Recommeded weight loss. patient verbalized understanding. (5)DVT prophylaxis Current Visit: Yes Status: Acute Plan to address problem: Lovenox 40 mg subcutaneous daily History Interval history: patient seen and examined, in no acute distress. Denies any fever or shortness of breath but still with intermittent pain in the abdomen. Hospitalist Physical - Physical exam Narrative exam: VITAL SIGNS: Reviewed. GENERAL: The patient appeared well nourished and normally developed. Vital signs as documented. HEAD: No signs of head trauma. EYES: Pupils are equal. Extraocular motions intact. EARS: Hearing grossly intact. MOUTH: Oropharynx is normal. NECK: No adenopathy, no JVD. CHEST: Chest with clear breath sounds bilaterally. No wheezes, rales, or rhonchi. CARDIAC: Regular rate and rhythm. S1 and S2, without murmurs, gallops, or rubs. VASCULAR: No Edema. Peripheral pulses normal and equal in all extremities. ABDOMEN: Soft, without detectable tenderness. No sign of distention. No rebound or guarding, and no masses palpated. Bowel Sounds normal. MUSCULOSKELETAL: Good range of motion of all major joints. Extremities without clubbing, cyanosis or edema. NEUROLOGIC EXAM: Alert and oriented x 3. No focal sensory or strength deficits. Speech normal. Follows commands. PSYCHIATRIC: Mood normal. SKIN: No rash or lesions. - Constitutional Vitals: Temp Pulse Resp BP Pulse Ox 97.9 F 71 18 136/74 96 07/17/17 11:01 07/17/17 11:01 07/17/17 11:01 07/17/17 11:01 07/17/17 11:01 General appearance: Present: severe distress Results - Labs CBC & Chem 7: 07/16/17 09:37 07/16/17 09:37 Labs: Laboratory Last Values WBC 13.9 K/mm3 (4.5-11.0) H 07/16/17 09:37 RBC 5.43 M/mm3 (3.65-5.03) H 07/16/17 09:37 Hgb 9.1 gm/dl (10.1-14.3) L 07/16/17 09:37 Hct 31.2 % (30.3-42.9) 07/16/17 09:37 MCV 57 fl (79-97) L 07/16/17 09:37 MCH 17 pg (28-32) L 07/16/17 09:37 MCHC 29 % (30-34) L 07/16/17 09:37 RDW 33.4 % (13.2-15.2) H 07/16/17 09:37 Plt Count 275 K/mm3 (140-440) 07/16/17 09:37 Add Manual Diff Complete 07/14/17 14:30 Total Counted 100 07/14/17 14:30 Seg Neuts % (Manual) 86.0 % (40.0-70.0) H 07/14/17 14:30 Band Neutrophils % 0 % 07/14/17 14:30 Lymphocytes % (Manual) 11.0 % (13.4-35.0) L 07/14/17 14:30 Reactive Lymphs % (Man) 0 % 07/14/17 14:30 Monocytes % (Manual) 3.0 % (0.0-7.3) 07/14/17 14:30 Eosinophils % (Manual) 0 % (0.0-4.3) 07/14/17 14:30 Basophils % (Manual) 0 % (0.0-1.8) 07/14/17 14:30 Metamyelocytes % 0 % 07/14/17 14:30 Myelocytes % 0 % 07/14/17 14:30 Promyelocytes % 0 % 07/14/17 14:30 Blast Cells % 0 % 07/14/17 14:30 Nucleated RBC % Not Reportable 07/14/17 14:30 Seg Neutrophils # Man 10.1 K/mm3 (1.8-7.7) H 07/14/17 14:30 Band Neutrophils # 0.0 K/mm3 07/14/17 14:30 Lymphocytes # (Manual) 1.3 K/mm3 (1.2-5.4) 07/14/17 14:30 Abs React Lymphs (Man) 0.0 K/mm3 07/14/17 14:30 Monocytes # (Manual) 0.4 K/mm3 (0.0-0.8) 07/14/17 14:30 Eosinophils # (Manual) 0.0 K/mm3 (0.0-0.4) 07/14/17 14:30 Basophils # (Manual) 0.0 K/mm3 (0.0-0.1) 07/14/17 14:30 Metamyelocytes # 0.0 K/mm3 07/14/17 14:30 Myelocytes # 0.0 K/mm3 07/14/17 14:30 Promyelocytes # 0.0 K/mm3 07/14/17 14:30 Blast Cells # 0.0 K/mm3 07/14/17 14:30 WBC Morphology Not Reportable 07/14/17 14:30 Hypersegmented Neuts Not Reportable 07/14/17 14:30 Hyposegmented Neuts Not Reportable 07/14/17 14:30 Hypogranular Neuts Not Reportable 07/14/17 14:30 Smudge Cells Not Reportable 07/14/17 14:30 Toxic Granulation Not Reportable 07/14/17 14:30 Toxic Vacuolation Not Reportable 07/14/17 14:30 Dohle Bodies Not Reportable 07/14/17 14:30 Pelger-Huet Anomaly Not Reportable 07/14/17 14:30 Pamela Rods Not Reportable 07/14/17 14:30 Platelet Estimate Consistent w auto 07/14/17 14:30 Clumped Platelets Not Reportable 07/14/17 14:30 Plt Clumps, EDTA Not Reportable 07/14/17 14:30 Large Platelets Not Reportable 07/14/17 14:30 Giant Platelets Not Reportable 07/14/17 14:30 Platelet Satelliting Not Reportable 07/14/17 14:30 Plt Morphology Comment Not Reportable 07/14/17 14:30 RBC Morphology Not Reportable 07/14/17 14:30 Dimorphic RBCs Not Reportable 07/14/17 14:30 Polychromasia Not Reportable 07/14/17 14:30 Hypochromasia 3+ 07/14/17 14:30 Poikilocytosis Not Reportable 07/14/17 14:30 Anisocytosis 3+ 07/14/17 14:30 Microcytosis 2+ 07/14/17 14:30 Macrocytosis Not Reportable 07/14/17 14:30 Spherocytes Not Reportable 07/14/17 14:30 Pappenheimer Bodies Not Reportable 07/14/17 14:30 Sickle Cells Not Reportable 07/14/17 14:30 Target Cells Rare 07/14/17 14:30 Tear Drop Cells Few 07/14/17 14:30 Ovalocytes 1+ 07/14/17 14:30 Helmet Cells Not Reportable 07/14/17 14:30 Seymour-[place] Bodies Not Reportable 07/14/17 14:30 Bostic Rings Not Reportable 07/14/17 14:30 Rashmi Cells Not Reportable 07/14/17 14:30 Bite Cells Not Reportable 07/14/17 14:30 Crenated Cell Not Reportable 07/14/17 14:30 Elliptocytes 1+ 07/14/17 14:30 Acanthocytes (Spur) Not Reportable 07/14/17 14:30 Rouleaux Not Reportable 07/14/17 14:30 Hemoglobin C Crystals Not Reportable 07/14/17 14:30 Schistocytes Not Reportable 07/14/17 14:30 Malaria parasites Not Reportable 07/14/17 14:30 Freddy Bodies Not Reportable 07/14/17 14:30 Hem Pathologist Commnt No 07/14/17 14:30 PT 14.9 Sec. (12.2-14.9) 07/14/17 14:30 INR 1.11 (0.87-1.13) 07/14/17 14:30 APTT 35.4 Sec. (24.2-36.6) 07/14/17 14:30 D-Dimer 1127.68 ng/mlDDU (0-234) H 07/14/17 14:30 POC ABG pH 7.415 (7.35-7.45) 07/14/17 14:55 POC ABG pCO2 40.1 (35-45) 07/14/17 14:55 POC ABG pO2 46 (80-105) L 07/14/17 14:55 POC ABG HCO3 25.7 07/14/17 14:55 POC ABG Total CO2 27 07/14/17 14:55 POC ABG O2 Sat 82 07/14/17 14:55 POC ABG Base Excess 1 07/14/17 14:55 FiO2 21 % 07/14/17 14:55 Sodium 139 mmol/L (137-145) 07/16/17 09:37 Potassium 4.1 mmol/L (3.6-5.0) 07/16/17 09:37 Chloride 97.8 mmol/L (98-107) L 07/16/17 09:37 Carbon Dioxide 26 mmol/L (22-30) 07/16/17 09:37 Anion Gap 19 mmol/L 07/16/17 09:37 BUN 16 mg/dL (7-17) 07/16/17 09:37 Creatinine 0.7 mg/dL (0.7-1.2) 07/16/17 09:37 Estimated GFR > 60 ml/min 07/16/17 09:37 BUN/Creatinine Ratio 23 % 07/16/17 09:37 Glucose 183 mg/dL (65-100) H 07/16/17 09:37 Hemoglobin A1c < 4.2 % (4-6) 07/14/17 14:30 Lactic Acid 1.40 mmol/L (0.7-2.0) 07/14/17 16:29 Calcium 8.5 mg/dL (8.4-10.2) 07/16/17 09:37 Total Bilirubin 0.50 mg/dL (0.1-1.2) 07/14/17 14:30 AST 74 units/L (5-40) H 07/14/17 14:30 ALT 59 units/L (7-56) H 07/14/17 14:30 Alkaline Phosphatase 122 units/L (35-129) 07/14/17 14:30 Troponin T < 0.010 ng/mL (0.00-0.029) 07/14/17 14:30 C-Reactive Protein 15.00 mg/dL (0.00-1.30) H 07/14/17 14:37 NT-Pro-B Natriuret Pep 707.2 pg/mL (0-450) H 07/14/17 14:37 Total Protein 6.9 g/dL (6.3-8.2) 07/14/17 14:30 Albumin 3.2 g/dL (3.9-5) L 07/14/17 14:30 Albumin/Globulin Ratio 0.9 % 07/14/17 14:30 Blood Type O POSITIVE 07/14/17 14:37 Antibody Screen Negative 07/14/17 14:37 Crossmatch See Detail 07/14/17 14:37
--- NOTE | 2017-07-17 11:53 | XRay Report ---
PORTABLE CHEST INDICATION: Pneumonia. COMPARISON: 07/14/2017 FINDINGS: Portable, frontal chest radiograph again demonstrates limited inspiration with mild exaggerated cardiomediastinal silhouette. Lesser perihilar and upper lobe bronchovascular/infiltrates prominence. Slight bibasilar hazy atelectasis. No significant pleural effusions. EKG leads. Stable bones. CONCLUSION: Bilateral perihilar and upper lobe pneumonias slightly less prominent radiographically, as described. Thank you for the opportunity to participate in this patient's care.
[2017-07-17] MEDS: MORPHINE IV PRN (12:26)
[2017-07-17] MEDS: LEVAQUIN PO SCH (12:26)
[2017-07-17] MEDS: DELTASONE PO SCH (17:16)
--- NOTE | 2017-07-17 18:41 | Progress Note ---
Assessment and Plan Patient alert, awake. Resting on 2 litres O2 . O2 saturation 100%.No complaint of chest pain or shortness of breath at this time. - Patient Problems (1) Acute respiratory failure with hypoxia Current Visit: Yes Status: Acute Plan to address problem: Improved. Reported O2 saturation 100% on 2 litres O2. Continue S/c Heparin. Continue famotadine. (2) Aspiration pneumonia Current Visit: Yes Status: Acute Qualifiers: Aspiration pneumonia type: due to vomit Laterality: bilateral Lung location: L Plan to address problem: Continue Levaquine. (3) Asthma Current Visit: Yes Status: Chronic Qualifiers: Asthma severity: A Asthma persistence: intermittent Asthma complication type: A Plan to address problem: O2 2 litres via nasal canula. Albuterol/atrovent aerosol treatments q 6 hours. Continue prednisone. 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 Subjective Date of service: 07/17/17 Principal diagnosis: Acute Hypoxemic Respiratory Failure, Aspiration Pneumonia Interval history: Patient alert, awake. Resting on 2 litres O2 . O2 saturation 100%.No complaint of chest pain or shortness of breath at this time. Objective Vital Signs - 12hr 07/17/17 07/17/17 07/17/17 08:00 10:00 10:08 Temperature Pulse Rate 71 Pulse Rate [ Anterior Bilateral Throughout] Respiratory 18 Rate Respiratory Rate [Anterior Bilateral Throughout] Respiratory 16 Rate [Chest] Blood Pressure [Right] O2 Sat by Pulse Oximetry 07/17/17 07/17/17 07/17/17 10:11 10:16 10:26 Temperature Pulse Rate Pulse Rate [ 67 74 Anterior Bilateral Throughout] Respiratory Rate Respiratory 16 18 Rate [Anterior Bilateral Throughout] Respiratory Rate [Chest] Blood Pressure [Right] O2 Sat by Pulse 100 Oximetry 07/17/17 07/17/17 07/17/17 11:01 11:08 12:26 Temperature 97.9 F Pulse Rate 71 Pulse Rate [ Anterior Bilateral Throughout] Respiratory 18 16 16 Rate Respiratory Rate [Anterior Bilateral Throughout] Respiratory Rate [Chest] Blood Pressure 136/74 [Right] O2 Sat by Pulse 96 Oximetry 07/17/17 07/17/17 07/17/17 12:30 13:00 14:10 Temperature 98.2 F Pulse Rate 85 Pulse Rate [ 77 Anterior Bilateral Throughout] Respiratory 16 18 Rate Respiratory 18 Rate [Anterior Bilateral Throughout] Respiratory Rate [Chest] Blood Pressure 131/74 [Right] O2 Sat by Pulse Oximetry 07/17/17 07/17/17 14:22 16:00 Temperature Pulse Rate 79 Pulse Rate [ 78 Anterior Bilateral Throughout] Respiratory Rate Respiratory 18 Rate [Anterior Bilateral Throughout] Respiratory Rate [Chest] Blood Pressure [Right] O2 Sat by Pulse Oximetry Constitutional: no acute distress, alert Eyes: non-icteric ENT: oropharynx moist, other (No thyromegaly) Neck: supple, no lymphadenopathy, no JVD, other (no bruit) Effort: mildly labored Ascultation: Bilateral: diminished breath sounds, rhonchi (bases) Cardiovascular: regular rate and rhythm, other (no rubs or murmurs) Gastrointestinal: normoactive bowel sounds, soft, non-tender, non-distended, other (No HSM) Integumentary: normal, other (no rash no cellulitis) Extremities: no cyanosis, no edema, pulses normal, no ischemia or petechiae, other (palpable pedal pulses bilaterally) Neurologic: normal mental status, non-focal exam, pupils equal and round, motor strength normal and, other (moves all 4 extremities) Psychiatric: mood appropriate, affect normal CBC and BMP: 07/16/17 09:37 07/16/17 09:37 ABG, PT/INR, D-dimer: ABG POC ABG pH 7.415 (7.35-7.45) 07/14/17 14:55 POC ABG pCO2 40.1 (35-45) 07/14/17 14:55 POC ABG pO2 46 (80-105) L 07/14/17 14:55 POC ABG HCO3 25.7 07/14/17 14:55 POC ABG Total CO2 27 07/14/17 14:55 POC ABG O2 Sat 82 07/14/17 14:55 PT/INR, D-dimer PT 14.9 Sec. (12.2-14.9) 07/14/17 14:30 INR 1.11 (0.87-1.13) 07/14/17 14:30 D-Dimer 1127.68 ng/mlDDU (0-234) H 07/14/17 14:30 Abnormal lab findings: Abnormal Labs 07/15/17 07/16/17 07/16/17 05:34 09:37 09:37 WBC 13.9 H RBC 5.43 H Hgb 9.1 L MCV 57 L MCH 17 L MCHC 29 L RDW 33.4 H Chloride 97.8 L Glucose 145 H 183 H Calcium 8.0 L Chest x-ray: report reviewed (Reported perihilar and upper lobe infiltrates.), image reviewed
[2017-07-17] MEDS: PEPCID PO SCH (22:18)
[2017-07-18] MEDS: MOTRIN PO SCH ×3 (01:23→13:19)
[2017-07-18] MEDS: DUONEB *Not for PRN Use IH SCH ×4 (02:14→14:18)
[2017-07-18] MEDS: LASIX IV SCH (06:37)
[2017-07-18 09:21] VITALS: BP 110/68
[2017-07-18] MEDS: PERCOCET 5/325 PO PRN (10:24)
[2017-07-18] MEDS: LEVAQUIN PO SCH (10:24)
[2017-07-18] MEDS: PEPCID PO SCH (10:24)
[2017-07-18] MEDS: DELTASONE PO SCH (10:24)
[2017-07-18] MEDS: HEPARIN SUB-Q SCH (10:25)
--- NOTE | 2017-07-18 15:23 | Discharge Summary ---
Providers - Providers Date of Admission: 07/14/17 18:01 Attending physician: JULIETH HARMAN MD Primary care physician: [employer]NAL [employer] Hospitalization Condition: Stable Hospital course: 36-year-old -[place] female with past medical history of asthma comes in for increasing shortness of breath and wheezing since a.m. Patient was found to be very hypoxic by the EMS. Patient was in the 70s and 80s of oxygen saturation. Patient recently had a robotic hysterectomy. No postop complications. Patient apparently had emesis yesterday and choked on some of her vomitus. Patient had an uneventful night but in the morning was very short of breath and wheezing. Also fever present. Patient has a history of asthma which is in remission. (1) Acute respiratory failure with hypoxia Secondary to aspiration pneumonia. Patient on BiPAP. DuoNeb and broad- spectrum antibiotics initiated. Intubation if necessary. judicious use of IV pain medication Patient remains afebrile switch to PO steroids today and monitor Repeat chest xray (2) Aspiration pneumonia Patient aspirated on vomitus Leading to admission. started on Broad spectrum antibiotic coverage with IV Zosyn and vancomycin. will descalate today. she has been afebrile with no growth in cultures SWITCH TO PO LEVAQUIN TODAY (3) Asthma Has wheezing now which is secondary to her aspiration pneumonia and reactive airway disease. Symptomatic treatment. (4)morbid Obesity * Recommeded weight loss. patient verbalized understanding. (5)DVT prophylaxis Current Visit: Yes Status: Acute Plan to address problem: Lovenox 40 mg subcutaneous daily Disposition: - TO HOME OR SELFCARE Exam - Constitutional Vitals: Temp Pulse Resp BP Pulse Ox 97.6 F 80 18 110/68 94 07/18/17 08:30 07/18/17 08:30 07/18/17 10:00 07/18/17 08:30 07/18/17 08:30 Plan Activity: advance as tolerated, fall precautions Diet: low salt Special Instructions: record daily weights, record daily BP diary, physical therapy Follow up with: HECTOR CAR MD [Primary Care Provider] - 3-5 Days DEBBI VILLAGOMEZ MD [Staff Physician] - 7 Days JEREMY MALIN MD [Staff Physician] - 7 Days Prescriptions: ALBUTEROL Inhaler [ProAir HFA Inhaler] 2 puff IH QID PRN 30 Days PRN Reason: Shortness Of Breath Levofloxacin [Levaquin TAB] 750 mg PO Q24HR #7 tablet Prednisone [predniSONE 10 mg (6-Day Pack, 21 Tabs)] 10 mg PO .TAPER #1 tab.ds.pk
--- NOTE | 2017-07-18 16:07 | Vascular Lab Report ---
LOWER EXTREMITY VENOUS DUPLEX: REASON FOR EXAM: Shortness of breath and swelling of the lower extremities. COMMENTS ON THE RIGHT: All veins visualized are freely compressible without evidence of internal echogenicity. Flow is spontaneous and phasic throughout. COMMENTS ON THE LEFT: All veins visualized are freely compressible without evidence of internal echogenicity. Flow is spontaneous and phasic throughout. IMPRESSION: No evidence of acute or chronic deep venous thrombosis in either lower extremity.
== END 2017-07-18 17:50 | disposition home or self-care (01) | DRG 177 ==
LOC: ED 14:17 → 4A 18:01
PROVIDERS: ADMIT Internal Medicine; ATTEND Internal Medicine
PROC: 4A033R1 Measurement of Arterial Saturation, Peripheral, Percutaneous Approach (ICD-10-PCS; principal; 2017-07-14)
PROC: 5A09357 Assistance with Respiratory Ventilation, Less than 24 Consecutive Hours, Continuous Positive Airway Pressure (ICD-10-PCS; 2017-07-14)
DX: J69.0 Pneumonitis due to inhalation of food and vomit (principal); J96.01 Acute respiratory failure with hypoxia; I42.9 Cardiomyopathy, unspecified; Z68.42 Body mass index [BMI] 45.0-49.9, adult; J45.909 Unspecified asthma, uncomplicated; E66.01 Morbid (severe) obesity due to excess calories; G89.29 Other chronic pain; D64.9 Anemia, unspecified; Z71.3 Dietary counseling and surveillance; Z90.49 Acquired absence of other specified parts of digestive tract; Z90.710 Acquired absence of both cervix and uterus; Z82.49 Family history of ischemic heart disease and other diseases of the circulatory system
CPT/HCPCS: 36415; 71010; 71275; 80048; 80053; 82140; 82803; 83036; 83880; 84484; 85007; 85025; 85027; 85379; 85610; 85730; 86140; 86850; 86900; 86901; 86920; 87040; 93005; 93010; 93308; 93321; 93325; 93970; 94640; 94760; 96365; 96375; 99291; J1644; J1940; J1956; J2270; J2405; J2543; J2920; J3370; J7030; J7040; J7512; Q9967